=== PATIENT | female | born 1940 | race Caucasian/White ===

== ENCOUNTER 2016-08-25 08:48 | Inpatient (IN) ==
[2016-08-25] MEDS ORDERED: LEVOFLOXACIN INJ 750 MG in PREMIX 1 EACH IV STA (09:03)
[2016-08-25] MEDS ORDERED: metroNIDAZOLE INJ 500 MG in PREMIX 1 EACH IV STA (09:03)
[2016-08-25] MEDS ORDERED: SODIUM CHLORIDE 0.9% 500 ML IV STA (09:03)
[2016-08-25] MEDS ORDERED: LEVOFLOXACIN INJ 150 ML IV ONE (09:10)
[2016-08-25] MEDS ORDERED: metroNIDAZOLE 500 MG/100 ML PREMIX IV ONE (09:11)
--- NOTE | 2016-08-25 09:36 | XRay Report ---
Exam: XR chest 1V portable Date: 08/25/2016 9:04 AM Indication: Abdominal pain Comparison: 01/22/2016 Technical: AP Findings: Cardiomegaly is present. A cardiac pacing device is present from a left-sided approach with atrial ventricular leads. Degenerative change present thoracic spine. Mediastinum is intact. Small area of calcification present over the left lateral axillary breasts region. Impression: 1. Cardiomegaly without overt decompensation 2. Stable persistent cardiac pacing device 3. Calcified node over the left axillary region or breast area PROCEDURE INTERPRETED AT [facility] DEPARTMENT OF RADIOLOGY Final Report Signed by: Dr. Teddy Gary
--- NOTE | 2016-08-25 09:43 | CT Report ---
History: Left lower quadrant abdominal pain. Fever Date: 08/25/2016 Study: CT abdomen and pelvis without contrast Comparison exam: December 24, [address] Technique: Spiral CT sections were obtained from the lung bases to the pubic symphysis without contrast. The CT exam was performed using one or more of the following dose reduction techniques: Automated exposure control, adjustment of the mA and/or kV according to patient size, or use of iterative reconstruction technique. CT abdomen: There is a 20 mm noncalcified pulmonary nodule in the right middle lobe posteriorly which is unchanged in size from January 18, 2016, increased in size from 13 mm on July 18, 2008 CT chest. There is also a small 14 mm noncalcified nodule inferiorly in the right middle lobe at its more medial aspect which is similar in size to the 2013 study. There is no definite evidence of acute pneumonia in the partially visualized lung bases. Pacemaker leads are noted in the partially visualized lower chest. There is no evidence of pneumoperitoneum. The gallbladder is surgically absent. The liver, spleen, pancreas, adrenal glands are unchanged. There is borderline prominence of the intrahepatic biliary ducts, though this is stable and may represent the patient's postcholecystectomy baseline. There is no radiopaque renal or ureteral stone. There is no hydronephrosis. There are some rounded areas of decreased density suggesting potential renal cysts in the mid to lower left kidney. There is no aneurysm of the moderately calcified abdominal aorta. There is some mild pericolonic haziness in the region of diverticuli involving the junction of the descending and sigmoid segments of colon, compatible with some low-grade diverticulitis. There is no wesley bowel obstruction. Evaluation for colon wall thickness is limited because of decreased colonic distention and the lack of oral contrast. There is no obvious lymphadenopathy by short axis diameter criteria. CT pelvis: There is no pelvic mass or abnormal pelvic fluid collection. The uterus is surgically absent. There is prominent degenerative disease in the lower lumbar spine. Impression: There is evidence of mild diverticulitis at the junction of the descending and sigmoid segments of the colon. There is no evidence of pneumoperitoneum or abscess formation. There is right middle lobe pulmonary nodule which has been present since 2008 and has exhibited only slow growth since that time. This has been followed by periodic CT chest PROCEDURE INTERPRETED AT [facility] [place] DEPARTMENT OF RADIOLOGY Final Report Signed by: Dr. Tara Enrique
[2016-08-25 10:41] LABS: Basophils % 0.1 % (0.0-0.8); Eosinophils # 0.1 10*3/uL (0.0-0.87); Eosinophils % 0.9 % (0.00-10.9); Hemoglobin 11.3 GM/DL (12.0-16.0); Immature Granulocytes % 0.4 %; Immature Granulocytes Absolute 0.04 #; Lymphocytes # 1.2 10*3/uL (1.4-4.0); Lymphocytes % 11.5 % (21.3-54.2); Mean Corpuscular HGB Conc 31.4 GM/DL (32-36); Mean Corpuscular Hemoglobin 22 PG (27-34); Mean Corpuscular Volume 71.4 FL (87-102); Mean Platelet Volume 10.5 FL (9.6-12.0); Monocytes # 0.9 10*3/uL (0.11-0.8); Monocytes % 8.5 % (1.7-12.7); Neutrophils # 8.4 10*3/uL (1.4-7.4); Neutrophils % 78.6 % (38.7-73.9); Platelet Count 278 T/CUMM (130-400); Red Blood Count 5.04 MC/CUMM (3.8-5.5); Red Cell Distribution Width 16.9 % (9.3-17.3); White Blood Count 10.6 T/CUMM (4-12)
[2016-08-25 10:47] LABS: Apearance,Urine Slightly Hazy (Clear); Bacteria,Urine Many /HPF (Few); Bilirubin,Urine Negative (Negative); Blood, Urine Negative (Negative); Glucose,Urine (UA) Negative (Negative); Ketones,Urine Negative (Negative); Mucus,Urine Occasional /LPF (Occasional); Nitrite,Urine Positive (Negative); Protein,Urine 30 MG/DL; RBC,Urine 1 /HPF (0-4); Squamous Epithelial Cell,Urine Occasional /HPF (0-10); Urine Color Yellow (Yellow); Urine Specific Gravity 1.008 (1.001-1.035); Urine Urobilinogen < 2.0 EU/DL (0.2-1.0); WBC,Urine 3 /HPF (0-6)
--- NOTE | 2016-08-25 10:56 | Emergency Department Note ---
Zoe Malave Mantricia, am scribing for, and in the presence of, Jourdan Beckford MD 09:10. Shakeel Malave Phillip K, MD, personally performed the services described in this documentation, ascribed by Jacquelyn Enriquez in my presence, and it is both accurate and complete . Arrival - Arrival Chief Complaint: Abdominal / Flank Pain ED Nursing Triage Note: c/o abd pain and diarrhea since thursday. Mode of Arrival: Stretcher Limitations: No Limitations Source: Patient Time Seen by Provider: 08/25/16 08:57 - History of Present Illness HPI Narrative: Pt is a 75 y/o white female arriving to ED with c/o lower abdominal pain that onset 2 days ago. Pt denies diverticulitis and ever having a colon scope performed before. She reports diarrhea with blood, chronic cough, and dysuria but denies N/V. Pt has a PMHx of COPD and IDDM and has a PSHx of hysterectomy, cholecystectomy, and appendicitis. She reports no other complaints to ED. Onset (ago): day(s) Consistency: constant Allergies/Adverse Reactions: Allergies Allergy/AdvReac Type Severity Reaction Status Date / Time latex Allergy ITCHING Verified 01/18/16 11:48 Latex, Natural Rubber Allergy RASH Verified 01/18/16 11:48 Penicillins Allergy RASH Verified 01/18/16 11:48 propoxyphene [From Darvon] Allergy RASH Verified 01/18/16 11:48 Sulfa (Sulfonamide Allergy RASH Verified 01/18/16 11:48 Antibiotics) sulfamethoxazole Allergy Nausea Verified 01/18/16 11:48 [From Bactrim] trimethoprim [From Bactrim] Allergy Nausea Verified 01/18/16 11:48 PLASTIC TAPE Allergy Intermediate ITCHING Uncoded 01/18/16 11:48 Home Medications: Home Medications Medication Instructions Recorded Confirmed Type Furosemide Tab [Lasix Tab] 40 mg PO DAILY 06/26/14 08/25/16 History Pantoprazole Tab [Protonix Tab] 40 mg PO DAILY 06/26/14 08/25/16 History Pravastatin [Pravachol] 40 mg PO BEDTIME 06/26/14 08/25/16 History Digoxin Tab [Lanoxin Tab] 0.25 mg PO DAILY 10/03/14 08/25/16 History Insulin Detemir [Levemir] 35 unit SUBCUT BEDTIME 08/01/15 08/25/16 History Potassium Chloride [Klor-Con M20] 20 meq PO QID 01/18/16 08/25/16 History Albuterol Sulfate [Ventolin HFA] 2 puff INH Q6H PRN 08/25/16 08/25/16 History Albuterol/Ipratropium Neb [Duoneb] 3 ml RESP TX RT Q6H PRN 08/25/16 08/25/16 History Losartan [Cozaar] 50 mg PO DAILY 08/25/16 08/25/16 History Metoprolol Tartrate Tab [Lopressor 100 mg PO DAILY 08/25/16 08/25/16 History Tab] Potassium Chloride [Klor-Con M20] 20 meq PO QID 08/25/16 08/25/16 History Rivaroxaban [Xarelto] 20 mg PO DAILY 08/25/16 08/25/16 History Vit C/Vit E AC/Lut/Copper/Zinc 1 each PO BID 08/25/16 08/25/16 History [Preservision Lutein Softgel] dilTIAZem HCl [Cartia XT] 300 mg PO DAILY 08/25/16 08/25/16 History Review of System - Review of System 12 point system: reviewed and no additional remarkable complaints except as stated - Review of System Head/Ears/Nose/Throat: Absent: earache Respiratory: Present: cough (chronic) Cardiovascular: Absent: chest pain Gastrointestinal: Present: abdominal pain (left sided ), diarrhea (with blood). Absent: nausea, vomiting Genitourinary female: Present: dysuria. Absent: abnormal menses Medical,Surgical,& Family Hx - Medical History Cardio: History of: Cardiac Dysrhythmia (A-FIB, afib with rvr), Hypertension, Pacemaker (left chest wall), Cardiovascular Problems No history of: CHF Psychological: History of: Anxiety Disorders, Depression Neurology: History of: TIA No history of: Seizures HEENT: History of: Ear Problem, Eye Problem, Dental Problems, Glaucoma, HEENT Problems Endocrine: History of: Diabetes Mellitus (IDDM) (levimir bid), Diabetes Mellitus (NIDDM) (TYPE 2) Rheumatology: History of;: Rheumatological Problems (pt reports rheumatoid arth) Respiratory: History of: COPD, Obstructive Sleep Apnea (uses c-pap), Pneumonia, Respiratory Problems (recurrent shortness of breath) Genitourinary: History of: Bladder Problem (stress incontinence), Recurring Urinary Tract Infections Gastrointestinal: History of: GERD, GI Problems (hemmeroids, gall bladder removal) Musculoskeletal: History of: Back/Neck Problems (pt reports pain), Musculoskeletal Problems (pt reports scoliosis, prior left wrist fx) Hematology: History of: Anemia, Clotting Problems No history of: Blood Transfusion Reaction Other: History of: Miscellaneous Medical Problems (benign mass removed from left breast) No history of: Anesthesia Reactions - Surgical History Cardiac Surgeries: Sugical HX of: Cardiac Catheterization () Thoracic Surgeries: Patient denies;: Lobectomy Neurologic Surgeries: Patient denies: Neurologic Surgery HEENT Surgeries: Surgical HX of: Eye Surgery, Tonsilectomy & Adenoidectomy Abdominal Surgeries: Surgical HX of: Cholecystectomy, Colonoscopy Reproductive Surgeries: Surgical HX of;: Breast Surgery (biopsy), Section, Hysterectomy Orthopedic Surgeries: Surgical HX of;: Orthopedic Surgery - Family History Family History: Reports;: Family Cancer (sister), Family Diabetes, Family Heart Disease (PARENTS), Family Hypertension (father, siblings) - Social History Smoking Status: Never smoker Frequency of Alcohol Use: None Type of Drug Use: None Exam Vital Signs: Vital Signs Temperature 99.0 F 08/25/16 08:52 Pulse Rate 79 08/25/16 08:52 Respiratory Rate 18 08/25/16 08:52 Blood Pressure 156/83 08/25/16 08:52 O2 Sat by Pulse Oximetry 98 08/25/16 08:52 - General General appearance: alert, in no apparent distress - Head Head exam: Present: atraumatic, normocephalic, normal inspection - Eye Eye exam: Present: normal appearance, PERRL, EOMI - ENT ENT exam: Present: normal exam, normal oropharynx, mucous membranes moist, TM's normal bilaterally, normal external ear exam - Neck Neck exam: Present: normal inspection, full ROM, trachea midline. Absent: tenderness - Chest Chest inspection: Present: normal inspection, symmetric chest wall rise. Absent : tenderness - Respiratory Respiratory exam: Present: normal lung sounds bilaterally - Cardiovascular Cardiovascular exam: Present: regular rate, normal rhythm, normal heart sounds - Abdominal Exam Abdominal exam: Present: soft, tenderness (LLQ TTP), normal bowel sounds. Absent: distention, guarding, rebound - Rectal Exam Rectal exam: Present: heme (+) stool, hemorrhoids, other (No gross blood) - Extremities Exam Extremities exam: Present: normal inspection, full ROM, normal capillary refill. Absent: tenderness, pedal edema - Back Exam Back exam: Present: normal inspection, full ROM. Absent: tenderness - Neurological Exam Neurological exam: Present: alert, oriented X3, CN II-XII intact, normal gait, reflexes normal - Psychiatric Psychiatric exam: Present: normal affect, normal mood - Skin Skin exam: Present: warm, dry, intact, normal color Course Course Narrative: Patient has diverticulitis. We will give her Levaquin and Flagyl in the ED and admit to the hospitalist. We will also obtain a GI consult and that she has not had a colonoscope in quite some time. Results - Labs CBC & BMP: 08/25/16 10:32 Lab Results: I have reviewed the patients labs - Diagnostic Findings Procedure: Chest x-ray: report reviewed by me (1. Cardiomegaly without overt decompensation. 2. Stable persistent cardiac pacing device. 3. Calcified node over the left axillary region or breast area.), CT Abdomen and Pelvis: report reviewed by me (There is evidence of mild diverticulitis at the junction of the descending and sigmoid segments of the colon. There is no evidence of pneumoperitoneum or abscess formation. There is right middle lobe pulmonary nodule which has been present since 2008 and has exhibited only slow growth since that time. This has been followed by periodic CT chest.) Disposition Clinical Impression: Diverticulitis Case discussed with: patient, patient's family Disposition: Still a Patient Condition: Guarded Additional Instructions: Admit to the hospitalist.
[2016-08-25 11:09] LABS: Albumin 3.5 G/DL (3.4-5.0); Bilirubin,Total 0.8 MG/DL (0.2-1.0); Calcium 8.4 MG/DL (8.5-10.1); Magnesium 1.8 MG/DL (1.8-2.4); Osmolality,Calculated 285.8 MOS/KG (273-304); Potassium 3.1 MMOL/L (3.5-5.1); Total Protein 6.3 G/DL (6.4-8.3)
--- NOTE | 2016-08-25 12:14 | Hospitalist History & Physical ---
Assessment and Plan - Time spent with patient Time spent with patient: Greater than 30 minutes (1) Acute diverticulitis Status: Acute Assessment and plan: Ms. Garcia is a pleasant 75-year-old white female with multiple medical problems admitted by the hospitalist service with acute diverticulitis and urinary tract infection. She will be started on IV antibiotics that will treat both. We will treat her pain and nausea on a as needed basis along with some IV fluids. She will be given a clear liquid diet until her pain improves. If her pain does not improve within a few days will need to get surgery and GI involved. We will replace her potassium and monitor her blood pressure in blood sugars. Dr. Vazquez will see and examined patient and further recommendations to follow. 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 Current Visit: No (5) COPD (chronic obstructive pulmonary disease) Status: Chronic Current Visit: No Qualifiers: COPD type: COPD with acute lower respiratory infection Qualified Code(s): J44.0 - Chronic obstructive pulmonary disease with acute lower respiratory infection (6) Diabetes mellitus Status: Chronic Current Visit: No Qualifiers: Diabetes mellitus type: type 1 Diabetes mellitus complication status: with neurologic complications (7) Hypertension Status: Chronic Current Visit: No Qualifiers: Hypertension type: essential hypertension Qualified Code(s): I10 - Essential (primary) hypertension History of Present Illness Chief complaint: Lower abdominal pain and diarrhea History of present illness: Ms. Garcia is a 75 year old white female with history of CHF, hyperlipidemia, diabetes, COPD, hypertension, and A. fib on Xarelto presenting to the ED with a 3 day history of left lower quadrant abdominal pain with diarrhea. Patient rates the pain a 6/10 and is unrelenting. This is not associated with nausea or vomiting and she has been running low-grade fever. She denies shortness of breath, chest pain, constipation or dysphagia. She has had some right lower extremity edema that Dr. ellis has doubled her Lasix recently. Patient states that she has never had diverticulitis before. Upon exam patient is running a low-grade fever in the ED with mildly elevated blood pressures. Her white count is normal, potassium is low at 3.1, blood sugars are okay, positive nitrates and trace leukocytes in her urine. CT scan of the abdomen does show mild diverticulitis at the junction of the descending and sigmoid segments of the colon with no evidence of pneumoperitoneum or abscess. She also has a right middle lobe pulmonary nodule which is been present since 2008 and has exhibited only slow growth since that time. Patient states she is being followed by Dr. Guy with periodic CTs for this. After discussion with ED physician Dr. Beckford and admitting hospitalist Dr. Vazquez, it was agreed patient would be admitted for further evaluation and treatment. Patient' s medicines have been reviewed and will be reconciled and patient is a full code. Home Medications Medication Instructions Recorded Confirmed Type Furosemide Tab [Lasix Tab] 40 mg PO DAILY 06/26/14 08/25/16 History Pantoprazole Tab [Protonix Tab] 40 mg PO DAILY 06/26/14 08/25/16 History Pravastatin [Pravachol] 40 mg PO BEDTIME 06/26/14 08/25/16 History Digoxin Tab [Lanoxin Tab] 0.25 mg PO DAILY 10/03/14 08/25/16 History Insulin Detemir [Levemir] 35 unit SUBCUT BEDTIME 08/01/15 08/25/16 History Potassium Chloride [Klor-Con M20] 20 meq PO QID 01/18/16 08/25/16 History Albuterol Sulfate [Ventolin HFA] 2 puff INH Q6H PRN 08/25/16 08/25/16 History Albuterol/Ipratropium Neb [Duoneb] 3 ml RESP TX RT Q6H PRN 08/25/16 08/25/16 History Losartan [Cozaar] 50 mg PO DAILY 08/25/16 08/25/16 History Metoprolol Tartrate Tab [Lopressor 100 mg PO DAILY 08/25/16 08/25/16 History Tab] Potassium Chloride [Klor-Con M20] 20 meq PO QID 08/25/16 08/25/16 History Rivaroxaban [Xarelto] 20 mg PO DAILY 08/25/16 08/25/16 History Vit C/Vit E AC/Lut/Copper/Zinc 1 each PO BID 08/25/16 08/25/16 History [Preservision Lutein Softgel] dilTIAZem HCl [Cartia XT] 300 mg PO DAILY 08/25/16 08/25/16 History Allergies Allergy/AdvReac Type Severity Reaction Status Date / Time latex Allergy ITCHING Verified 01/18/16 11:48 Latex, Natural Rubber Allergy RASH Verified 01/18/16 11:48 Penicillins Allergy RASH Verified 01/18/16 11:48 propoxyphene [From Darvon] Allergy RASH Verified 01/18/16 11:48 Sulfa (Sulfonamide Allergy RASH Verified 01/18/16 11:48 Antibiotics) sulfamethoxazole Allergy Nausea Verified 01/18/16 11:48 [From Bactrim] trimethoprim [From Bactrim] Allergy Nausea Verified 01/18/16 11:48 PLASTIC TAPE Allergy Intermediate ITCHING Uncoded 01/18/16 11:48 Medical,Surgical,& Family Hx - Medical History Cardio: History of: Cardiac Dysrhythmia (A-FIB, afib with rvr), Hypertension, Pacemaker (left chest wall), Cardiovascular Problems No history of: CHF Psychological: History of: Anxiety Disorders, Depression Neurology: History of: TIA No history of: Seizures HEENT: History of: Ear Problem, Eye Problem, Dental Problems, Glaucoma, HEENT Problems Endocrine: History of: Diabetes Mellitus (IDDM) (levimir bid), Diabetes Mellitus (NIDDM) (TYPE 2) Rheumatology: History of;: Rheumatological Problems (pt reports rheumatoid arth) Respiratory: History of: COPD, Obstructive Sleep Apnea (uses c-pap), Pneumonia, Respiratory Problems (recurrent shortness of breath) Genitourinary: History of: Bladder Problem (stress incontinence), Recurring Urinary Tract Infections Gastrointestinal: History of: GERD, GI Problems (hemmeroids, gall bladder removal) Musculoskeletal: History of: Back/Neck Problems (pt reports pain), Musculoskeletal Problems (pt reports scoliosis, prior left wrist fx) Hematology: History of: Anemia, Clotting Problems No history of: Blood Transfusion Reaction Other: History of: Miscellaneous Medical Problems (benign mass removed from left breast) No history of: Anesthesia Reactions - Surgical History Cardiac Surgeries: Sugical HX of: Cardiac Catheterization () Thoracic Surgeries: Patient denies;: Lobectomy Neurologic Surgeries: Patient denies: Neurologic Surgery HEENT Surgeries: Surgical HX of: Eye Surgery, Tonsilectomy & Adenoidectomy Abdominal Surgeries: Surgical HX of: Cholecystectomy, Colonoscopy Reproductive Surgeries: Surgical HX of;: Breast Surgery (biopsy), Section, Hysterectomy Orthopedic Surgeries: Surgical HX of;: Orthopedic Surgery - Family History Family History: Reports;: Family Cancer (sister), Family Diabetes, Family Heart Disease (PARENTS), Family Hypertension (father, siblings) - Social History Smoking Status: Never smoker Frequency of Alcohol Use: None Type of Drug Use: None Marital Status: Lives With:: Assisted-living Functional capacity: independent ambulation Review of systems: A complete 10 system review of systems was obtained and pertinent positives and negatives per HPI Exam - Constitutional Vitals: Period Temp Pulse Resp BP Sys/Camacho Pulse Ox Last 24 Hr 99.0 F-99.0 F 79-79 18-18 156-156/83-83 98 Exam: Constitutional System: No distress. No tremulousness. Head: Normocephalic, atraumatic. Ears, Nose and Throat System: No evidence of Otitis or Mastoiditis. No epistaxis or discharge Eyes System: Pupils equal, round, and reactive. Extraocular muscles intact. Neck: Supple, without adenopathy, No jugular venous distention. No thyromegaly, neck mass, or prior surgery apparent. Respiratory System: Chest clear to auscultation. Cardiovascular System: Heart with irregularly irregular rate and rhythm. No murmur. GI System: Abdomen soft, moderately tender left lower quadrant. Normo active bowel sounds present. Musculoskeletal System: limbs with mild right pedal edema. Diminished distal pulses. Neurological System: No discernable sensory deficit. No aphasia Psychiatric System: Conversation is rational Results - Labs CBC & BMP: 08/25/16 10:32 08/25/16 10:32 Lab Results: I have reviewed the past 24 hour labs - Diagnostic Findings Procedure: Chest x-ray: report reviewed by me (Cardiomegaly without overt decompensation, stable persistent cardiac pacing device, calcified node over the left axillary region or breast), CT Abdomen and Pelvis: report reviewed by me (Evidence of mild diverticulitis at the junction of the descending and sigmoid segments of the colon. No evidence of pneumoperitoneum or abscess. Right middle lobe pulmonary nodule stable since 2008.)
[2016-08-25] MEDS ORDERED: ACETAMINOPHEN 325 MG TABLET PO PRN ×2 (12:20)
[2016-08-25] MEDS ORDERED: PROMETHAZINE 25 MG/1 ML VIAL IM PRN (12:20)
[2016-08-25] MEDS ORDERED: DOCUSATE SODIUM 100 MG CAPSULE PO PRN (12:20)
[2016-08-25] MEDS ORDERED: guaiFENesin/DM ER 600-30 MG TABLET PO PRN (12:20)
[2016-08-25] MEDS ORDERED: diphenhydrAMINE CAP 25 MG CAPSULE PO PRN (12:20)
[2016-08-25] MEDS ORDERED: MORPHINE 2 MG/1 ML SYRINGE IV PRN (12:20)
[2016-08-25] MEDS ORDERED: ALBUTEROL/IPRATROPIUM 3 ML NEB RESP TX PRN (12:23)
[2016-08-25] MEDS ORDERED: GLUCAGON 1 MG VIAL IM PRN (12:24)
[2016-08-25] MEDS ORDERED: DEXTROSE 50% 25 GM/50 ML VIAL IV PRN (12:24)
[2016-08-25] MEDS: SODIUM CHLOR 0.9% KCL 20 MEQ 20 MEQ/1,000 ML BAG IV SCH (15:10)
[2016-08-25] MEDS: metroNIDAZOLE INJ 500 MG in PREMIX 1 EACH IV SCH ×2 (15:10→20:48)
[2016-08-25] MEDS: DIGOXIN 0.25 MG TABLET PO SCH (15:11)
[2016-08-25] MEDS: LOSARTAN 50 MG TABLET PO SCH (15:11)
[2016-08-25] MEDS: METOPROLOL TARTRATE 100 MG TABLET PO SCH (15:11)
[2016-08-25] MEDS: DILTIAZEM CD 300 MG CAPSULE PO SCH (15:12)
[2016-08-25] MEDS: FUROSEMIDE 40 MG TABLET PO SCH (15:12)
[2016-08-25] MEDS: RIVAROXABAN 20 MG TABLET PO SCH (15:12)
[2016-08-25] MEDS: PANTOPRAZOLE 40 MG TABLET PO SCH (15:12)
[2016-08-25] MEDS: INSULIN LISPRO 100 UNIT/ML SUBCUT SCH ×2 (17:26→23:09)
[2016-08-25] MEDS ORDERED: ALBUTEROL 2.5 MG/3 ML NEB RESP TX PRN (19:00)
[2016-08-25] MEDS: PRAVASTATIN 40 MG TABLET PO SCH (20:49)
[2016-08-25] MEDS: ONDANSETRON 4 MG/2 ML VIAL IV PRN (23:17)
[2016-08-26] MEDS: SODIUM CHLOR 0.9% KCL 20 MEQ 20 MEQ/1,000 ML BAG IV SCH ×4 (02:04→21:58)
[2016-08-26] MEDS: metroNIDAZOLE INJ 500 MG in PREMIX 1 EACH IV SCH ×3 (05:41→22:26)
[2016-08-26 05:47] LABS: Basophils % 0.2 % (0.0-0.8); Eosinophils # 0.1 10*3/uL (0.0-0.87); Eosinophils % 0.7 % (0.00-10.9); Hematocrit 35.2 VOL% (35.7-47.0); Hemoglobin 10.9 GM/DL (12.0-16.0); Immature Granulocytes % 0.4 %; Immature Granulocytes Absolute 0.05 #; Lymphocytes # 1.1 10*3/uL (1.4-4.0); Mean Corpuscular Hemoglobin 22 PG (27-34); Mean Corpuscular Volume 71.8 FL (87-102); Mean Platelet Volume 10.6 FL (9.6-12.0); Monocytes # 0.8 10*3/uL (0.11-0.8); Monocytes % 6.1 % (1.7-12.7); Neutrophils # 10.5 10*3/uL (1.4-7.4); Neutrophils % 83.6 % (38.7-73.9); Platelet Count 293 T/CUMM (130-400); White Blood Count 12.6 T/CUMM (4-12)
[2016-08-26 06:21] LABS: Calcium 7.9 MG/DL (8.5-10.1); Magnesium 1.8 MG/DL (1.8-2.4); Osmolality,Calculated 284.8 MOS/KG (273-304); Potassium 3.5 MMOL/L (3.5-5.1)
[2016-08-26] MEDS: INSULIN LISPRO 100 UNIT/ML SUBCUT SCH ×4 (06:59→22:16)
--- NOTE | 2016-08-26 07:25 | EKG Report ---
Stationary ECG Study [facility] Test Date: 08/26/2016 7:24:02 AM Pat Name: HANNA LEZAMA Department: Room: 338 Gender: F Vice Chancellor: JESUS : 1940 Requested by: Phyllis Carvajal Order Number: [id number] Reading MD: LUPE CHAHAL Intervals [place] Rate: 61 P: 999 [place]: 0 QRS: -27 QRSD: 104 T: 50 QT: 401 QTc: 405 Interpretive Statements UNCERTAIN IRREGULAR RHYTHM ELECTRONIC VENTRICULAR PACEMAKER -- CONTOUR ANALYSIS BASED ON INTRINSIC RHYTHM BORDERLINE LEFT AXIS DEVIATION ST DEVIATION AND MODERATE T-WAVE ABNORMALITY Electronically Signed On 08-26-16 10:03:33 CDT by LUPE CHAHAL [email or web address]
[2016-08-26] MEDS: LOSARTAN 50 MG TABLET PO SCH (08:49)
[2016-08-26] MEDS: DILTIAZEM CD 300 MG CAPSULE PO SCH (08:50)
[2016-08-26] MEDS: PANTOPRAZOLE 40 MG TABLET PO SCH (08:50)
[2016-08-26] MEDS: RIVAROXABAN 20 MG TABLET PO SCH (08:50)
[2016-08-26] MEDS: FUROSEMIDE 40 MG TABLET PO SCH (08:50)
[2016-08-26] MEDS: METOPROLOL TARTRATE 100 MG TABLET PO SCH (08:50)
[2016-08-26] MEDS: LEVOFLOXACIN INJ 500 MG in PREMIX 1 EACH IV SCH (11:20)
[2016-08-26] MEDS: DIGOXIN 0.25 MG TABLET PO SCH (12:46)
--- NOTE | 2016-08-26 13:03 | Hospitalist Progress Note ---
Assessment and Plan - Time spent with patient Time spent with patient: Greater than 30 minutes (1) History of melena Status: Acute Assessment and plan: Hemoglobin stable. Holding rivaroxaban. Current Visit: Yes (2) Acute diverticulitis Status: Acute Assessment and plan: Continue antibiotics. We will obtain Hemoccults and consult gastroenterology. Current Visit: Yes (3) UTI (urinary tract infection) Status: Acute Assessment and plan: Continue antibiotics awaiting speciation. Current Visit: Yes (4) Atrial fibrillation Status: Acute Assessment and plan: We will hold rivaroxaban.. Will have to confirm if the patient is having bloody bowel movements. Hemoglobin is stable. Hemoccults ordered. Current Visit: No (5) Diabetes mellitus Status: Chronic Assessment and plan: Hemoglobin A1c 6.2. Continue current management. Current Visit: No Qualifiers: Diabetes mellitus type: type 1 Diabetes mellitus complication status: with neurologic complications (6) Hypertension Status: Chronic Assessment and plan: Continue current management. Current Visit: No Qualifiers: Hypertension type: essential hypertension Qualified Code(s): I10 - Essential (primary) hypertension Hospitalist: Subjective Interval history: Patient reports feeling much better though she still has occasional abdominal pain. She also reports having nausea and vomiting last night which she did not have at admission. Furthermore the patient had a black bowel movement this morning. Exam - Constitutional Vitals: Period Temp Pulse Resp BP Sys/Camacho Pulse Ox Last 24 Hr 97.0 F-98.8 F 61-85 16-20 123-150/65-96 91-96 General appearance: no acute distress - Head Head exam: Present: normocephalic, atraumatic - Eye Eye exam: Present: EOMI Pupils: Present: CHANDU - ENT ENT exam: Present: normal exam - Neck Neck exam: Present: normal inspection - Respiratory Respiratory exam: Present: clear to auscultation bilaterally. Absent: rhonchi, wheezes - Cardiovascular Cardiovascular exam: Present: regular rate and rhythm. Absent: gallop, rubs, systolic murmur - GI/Abdominal GI/Abdominal exam: Present: normal bowel sounds, tenderness (Mild Tenderness left lower quadrant), soft. Absent: distended, firm, guarding, rebound - Extremities Exam Extremities exam: Present: normal inspection. Absent: calf tenderness, edema Results - Labs CBC & BMP: 08/26/16 05:13 08/26/16 05:12 Lab Results: I have reviewed the past 24 hour labs Quality Measures - VTE Contraindication to Pharmacological VTE Prophylaxis: Already on Theraputic Agent , No Prophylaxis Needed
--- NOTE | 2016-08-26 15:01 | Gastrointestinal Consult Note ---
<Ana Anne - Last Filed: 08/26/16 14:58> Assessment and Plan (1) Diverticulitis Status: Acute Assessment and plan: 08/26-2-3 day history of left lower quadrant pain with associated diarrhea and low-grade fever. Also later onset of nausea with vomiting. CT findings noted as below. Leukocytosis with WBCs at 12,000. Currently on IV Flagyl and Levaquin. Continue to monitor at this time. Will advance diet in the morning if pain is improved. Plan an addendum to followed by Dr. Travis. Current Visit: Yes (2) Melena Status: Acute Assessment and plan: 08/26-report by patient this morning of dark stool. On Xarelto for atrial fibrillation, last dose today. No history of NSAID use or peptic ulcer disease. Last EGD in 2015 with findings below. Xarelto currently being held in stool for occult blood is pending. Plan an addendum to follow by Dr. Travis. Current Visit: Yes History of Present Illness Chief complaint: Diverticulitis, questionable melena History of present illness: Ms. Garcia is a 75 year old female who presented to the hospital and yesterday with 2-3 day history of left lower quadrant abdominal pain, nausea and diarrhea. Patient states that the pain started fairly sudden 2-3 days ago in her left lower quadrant with sharp stabbing pains. She states the pain was not precipitated by any known factors and was associated with a low-grade fever but denies any chills. She states she did have some mild nausea initially with this. She also reports onset of diarrhea stools at 3-4 per day since onset of pain. She denies any melena or hematochezia initially associated with this. She presented to the emergency room for further evaluation at that time. Patient states that since admission she has had 3-4 loose bowel movements today. She reported this morning that her stools look dark in color however she states nursing staff felt that it was not melena. She is noted to be on Xarelto for history of atrial fibrillation with her last reported dose being this morning. This is currently noted to be on hold at present time due to the reports of melena. Stool for occult blood is pending. She was also found on admission to have a UTI with gram-negative rods and final C&S pending. She states that she has lost approximately 45 pounds over the last year and a half however states it was unwarranted weight loss associated to her fairly new diagnosis of diabetes and dietary changes. She states she keeps her blood sugar in very good control. She has had upper endoscopy with the last one done in 2016 with findings of GERD, esophageal stricture with dilation, and gastric polyps (hyperplastic) with negative H. pylori stain. She denies any dysphagia, GERD, epigastric pain, or dyspepsia symptoms. Denies any NSAID use. She denies any Pepto-Bismol or iron supplements. She denies a history of diverticulitis in the past. States she has never had a colon scope done. She does report a family history of colon cancer in her brother who also at that time was found to have liver cancer. CT of abdomen without contrast shows mild diverticulitis at the junction of the descending and sigmoid segments of the colon with no pneumoperitoneum or abscess formation. She presented without leukocytosis on yesterday however elevated at 12,000 today. Hemoglobin is down very minimally from admission at 10.9. She states when she is better she would like to proceed with a colon scope. Home Medications Medication Instructions Recorded Confirmed Type Furosemide Tab [Lasix Tab] 40 mg PO DAILY 06/26/14 08/25/16 History Pantoprazole Tab [Protonix Tab] 40 mg PO DAILY 06/26/14 08/25/16 History Pravastatin [Pravachol] 40 mg PO BEDTIME 06/26/14 08/25/16 History Digoxin Tab [Lanoxin Tab] 0.25 mg PO DAILY 10/03/14 08/25/16 History Insulin Detemir [Levemir] 35 unit SUBCUT BEDTIME 08/01/15 08/25/16 History Albuterol Sulfate [Ventolin HFA] 2 puff INH Q6H PRN 08/25/16 08/25/16 History Albuterol/Ipratropium Neb [Duoneb] 3 ml RESP TX RT Q6H PRN 08/25/16 08/25/16 History Losartan [Cozaar] 50 mg PO DAILY 08/25/16 08/25/16 History Metoprolol Tartrate Tab [Lopressor 100 mg PO DAILY 08/25/16 08/25/16 History Tab] Potassium Chloride [Klor-Con M20] 20 meq PO QID 08/25/16 08/25/16 History Rivaroxaban [Xarelto] 20 mg PO DAILY 08/25/16 08/25/16 History Vit C/Vit E AC/Lut/Copper/Zinc 1 each PO BID 08/25/16 08/25/16 History [Preservision Lutein Softgel] dilTIAZem HCl [Cartia XT] 300 mg PO DAILY 08/25/16 08/25/16 History Allergies Allergy/AdvReac Type Severity Reaction Status Date / Time latex Allergy ITCHING Verified 01/18/16 11:48 Latex, Natural Rubber Allergy RASH Verified 01/18/16 11:48 Penicillins Allergy RASH Verified 01/18/16 11:48 propoxyphene [From Darvon] Allergy RASH Verified 01/18/16 11:48 Sulfa (Sulfonamide Allergy RASH Verified 01/18/16 11:48 Antibiotics) sulfamethoxazole Allergy Nausea Verified 01/18/16 11:48 [From Bactrim] trimethoprim [From Bactrim] Allergy Nausea Verified 01/18/16 11:48 PLASTIC TAPE Allergy Intermediate ITCHING Uncoded 01/18/16 11:48 Medical,Surgical,& Family Hx - Medical History Cardio: History of: Cardiac Dysrhythmia (A-FIB, afib with rvr), CHF, Hypertension, Pacemaker (left chest wall), Cardiovascular Problems Psychological: History of: Anxiety Disorders, Depression Neurology: History of: TIA No history of: Seizures HEENT: History of: Ear Problem, Eye Problem, Dental Problems, Glaucoma, HEENT Problems Endocrine: History of: Diabetes Mellitus (IDDM) (levimir bid), Diabetes Mellitus (NIDDM) (TYPE 2) Rheumatology: History of;: Rheumatological Problems (pt reports rheumatoid arth) Respiratory: History of: COPD, Obstructive Sleep Apnea (uses c-pap), Pneumonia, Respiratory Problems (recurrent shortness of breath) Genitourinary: History of: Bladder Problem (stress incontinence), Recurring Urinary Tract Infections Gastrointestinal: History of: GERD, GI Problems (hemmeroids, gall bladder removal) Musculoskeletal: History of: Back/Neck Problems (pt reports pain), Musculoskeletal Problems (pt reports scoliosis, prior left wrist fx) Hematology: History of: Anemia, Clotting Problems No history of: Blood Transfusion Reaction Other: History of: Miscellaneous Medical Problems (benign mass removed from left breast) No history of: Anesthesia Reactions - Surgical History Cardiac Surgeries: Sugical HX of: Cardiac Catheterization () Thoracic Surgeries: Patient denies;: Lobectomy Neurologic Surgeries: Patient denies: Neurologic Surgery HEENT Surgeries: Surgical HX of: Eye Surgery, Tonsilectomy & Adenoidectomy Abdominal Surgeries: Surgical HX of: Appendectomy, Cholecystectomy, Colonoscopy Reproductive Surgeries: Surgical HX of;: Breast Surgery (biopsy), Section, Hysterectomy Orthopedic Surgeries: Surgical HX of;: Orthopedic Surgery - Family History Family History: Reports;: Family Cancer (sister), Family Diabetes, Family Heart Disease (PARENTS), Family Hypertension (father, siblings) - Social History Smoking Status: Never smoker Frequency of Alcohol Use: None Type of Drug Use: None 12 point system: reviewed and no additional remarkable complaints except as stated - Constitutional Constitutional: Present: as per HPI, weight loss (45 pounds 1-1/2 years) - EENT Eyes: Present: as per HPI Ears: Present: as per HPI Nose, mouth and throat: Present: as per HPI - Cardiovascular Cardiovascular: Present: as per HPI - Respiratory Respiratory: Present: as per HPI - Gastrointestinal Gastrointestinal: Present: as per HPI, abdominal pain, cramping, diarrhea, loose stools, melena (Reported by patient), nausea - Genitourinary Genitourinary: Present: as per HPI - Musculoskeletal Musculoskeletal: Present: as per HPI - Neurological Neurological: Present: as per HPI - Psychiatric Psychiatric: Present: as per HPI - Endocrine Endocrine: Present: as per HPI - Hematologic/Lymphatic Hematologic/Lymphatic: Present: as per HPI Exam - Constitutional Vitals: Period Temp Pulse Resp BP Sys/Camacho Pulse Ox Last 24 Hr 97.0 F-98.8 F 61-85 16-20 123-150/65-96 91-96 General appearance: normal weight, no acute distress - Head Head exam: Present: normal inspection, normocephalic - Eye Eye exam: Present: other (Lids and conjunctive are unremarkable). Absent: scleral icterus - ENT ENT exam: Present: normal exam, normal oropharynx - Neck Neck exam: Present: normal inspection - Respiratory Respiratory exam: Present: clear to auscultation bilaterally. Absent: rales, rhonchi, wheezes - Cardiovascular Cardiovascular exam: Present: regular rate and rhythm. Absent: diastolic murmur , JVD, systolic murmur - GI/Abdominal GI/Abdominal exam: Present: normal bowel sounds, tenderness (Left lower quadrant ), soft. Absent: ascites, distended, mass, organomegaly - Extremities Exam Extremities exam: Present: normal inspection, full ROM - Back Exam Back exam: Present: normal inspection - Neurological Exam Neurological exam: Present: alert, oriented X3 - Psychiatric Psychiatric exam: Present: normal affect, normal mood - Skin Skin exam: Present: normal color, warm, dry Results - Labs CBC & BMP: 08/26/16 05:13 08/26/16 05:12 Lab Results: I have reviewed the past 24 hour labs - Diagnostic Findings Procedure: CT Abdomen and Pelvis: report reviewed by me Quality Measures - VTE Contraindication to Pharmacological VTE Prophylaxis: Already on Theraputic Agent , No Prophylaxis Needed <Fernando Travis - Last Filed: 08/26/16 19:02> History of Present Illness History of present illness: Ms. Garcia is a 75 year old female Exam - Constitutional Vitals: Period Temp Pulse Resp BP Sys/Camacho Pulse Ox Last 24 Hr 97.0 F-98.8 F 60-66 16-20 123-138/65-83 91-96 Results - Labs CBC & BMP: 08/26/16 05:13 08/26/16 05:12
[2016-08-26] MEDS: PANTOPRAZOLE 40 MG VIAL IV SCH ×2 (15:29→22:18)
[2016-08-26] MEDS: PRAVASTATIN 40 MG TABLET PO SCH (22:16)
[2016-08-26] MEDS: MULTIVITAMIN (OCUVITE) TABLET PO SCH (22:23)
[2016-08-26] MEDS ORDERED: DILTIAZEM CD 300 MG CAPSULE PO SCH (22:30)
[2016-08-27] MEDS: metroNIDAZOLE INJ 500 MG in PREMIX 1 EACH IV SCH ×2 (07:01→14:30)
[2016-08-27] MEDS: SODIUM CHLOR 0.9% KCL 20 MEQ 20 MEQ/1,000 ML BAG IV SCH ×2 (07:01→12:31)
[2016-08-27] MEDS: ONDANSETRON 4 MG/2 ML VIAL IV PRN (07:01)
[2016-08-27] MEDS: INSULIN LISPRO 100 UNIT/ML SUBCUT SCH ×3 (08:38→16:40)
[2016-08-27] MEDS: METOPROLOL TARTRATE 100 MG TABLET PO SCH (09:49)
[2016-08-27] MEDS: PANTOPRAZOLE 40 MG VIAL IV SCH (09:49)
[2016-08-27] MEDS: LOSARTAN 50 MG TABLET PO SCH (09:49)
[2016-08-27] MEDS ORDERED: PROPOFOL 200 MG/20 ML VIAL IV ONE (10:44)
[2016-08-27] MEDS ORDERED: LIDOCAINE 2% 5 ML VIAL ONE (10:44)
--- NOTE | 2016-08-27 10:44 | History and Physical Update ---
History and Physical Update - Physical Exam Mental Status: alert and oriented Heart: regular rate and rhythm Lung: clear to auscultation Abdomen: within normal limits Vitals: within normal limits
--- NOTE | 2016-08-27 10:46 | Operative Note ---
Pre-op diagnosis: Melena Procedure: EGD 75-year-old female admitted with acute diverticulitis question of melenic stools on chronic anticoagulation now for upper endoscopy to further evaluate. Informed consent was obtained the patient She was sedated with MAC anesthesia per anesthesia protocol. Patient was placed in left lateral decubitus position the Olympus flexible video upper endoscope was inserted into the oral cavity under direct vision the esophagus intubated. Findings: Esophagus-normal esophageal mucosa. There is a small hiatal hernia no significant esophagitis was seen. Stomach-normal insufflation normal mucosa to direct retroflexed views of the body fundus cardia the stomach. There are a few small gastric polyps seen in the antrum these were not biopsied due to anticoagulants. They do appear to be benign gastric polyps. Pylorus-normal Duodenum-normal for the bulb and duodenum to the third portion of the duodenum. The procedure was terminated patient was discharged recovery in good condition. Postop diagnosis: 1. Gastroesophageal reflux disease-continue PPI treatment antireflux precautions 2. Gastric polyps no endoscopic intervention needed at this time. 3. Continue treatment for acute diverticulitis and plan colonoscopy in probably 4-6 weeks. 4. Okay to resume anticoagulants as needed Anesthesia: MAC Surgeon / Physician: Fernando Travis Estimated blood loss: none Specimens: none sent Condition: stable Disposition: post procedure unit Results - Labs CBC & BMP: 08/26/16 05:13 08/26/16 05:12 Discharge Plan - Discharge Medications No Action Pravastatin [Pravachol] 40 mg PO BEDTIME Furosemide Tab [Lasix Tab] 40 mg PO DAILY Pantoprazole Tab [Protonix Tab] 40 mg PO DAILY Digoxin Tab [Lanoxin Tab] 0.25 mg PO DAILY Insulin Detemir [Levemir] 35 unit SUBCUT BEDTIME Albuterol Sulfate [Ventolin HFA] 2 puff INH Q6H PRN PRN Reason: Shortness Of Breath/Wheezing Metoprolol Tartrate Tab [Lopressor Tab] 100 mg PO DAILY dilTIAZem HCl [Cartia XT] 300 mg PO DAILY Potassium Chloride [Klor-Con M20] 20 meq PO QID Rivaroxaban [Xarelto] 20 mg PO DAILY Albuterol/Ipratropium Neb [Duoneb] 3 ml RESP TX RT Q6H PRN PRN Reason: Shortness Of Breath Vit C/Vit E AC/Lut/Copper/Zinc [Preservision Lutein Softgel] 1 each PO BID Losartan [Cozaar] 50 mg PO DAILY - Follow Up or Referral - Forms/Instructions
--- NOTE | 2016-08-27 10:55 | Anesthesia Post-Op ---
Anesthesia Post OP - Post Ansesthetic Evaluation Patient seen in post op: Yes Resp: within normal limits CV: within normal limits Mental: within normal limits Temp: within normal limits [id number]: within normal limits Nausea and Vomiting: within normal limits Pain: within normal limits
[2016-08-27] MEDS: FUROSEMIDE 40 MG TABLET PO SCH (13:01)
[2016-08-27] MEDS: MULTIVITAMIN (OCUVITE) TABLET PO SCH (13:02)
[2016-08-27] MEDS: LEVOFLOXACIN INJ 500 MG in PREMIX 1 EACH IV SCH (13:02)
--- NOTE | 2016-08-27 14:11 | Discharge Summary ---
Hospital Course - Hospital Course Hospital Course: Ms. Garcia presented with abdominal pain. CT of the abdomen and pelvis revealed diverticulitis. She was admitted for management of diverticulitis. She was initiated on metronidazole and Levaquin. Urinary analysis revealed an infection and this returned E. coli which is pansensitive. During hospitalization the patient complained of having dark stool and her Xarelto was held gastroenterology was consulted and she had an upper endoscopy the next day which showed evidence of gastroesophageal reflux disease. Xarelto was restarted. Of note she had a stool sent for Hemoccult which was negative for presence of blood. The patient's tolerated advancing her diet and by discharge her abdominal pain had significantly improved. By discharge she had met maximum benefit of hospitalization. I spent 37 minutes coordinating this discharge. - Time spent with patient Time with patient DS: Greater than 30 minutes Diagnosis - Discharge Diagnosis (1) History of melena Status: Acute (2) Acute diverticulitis Status: Acute (3) UTI (urinary tract infection) Status: Acute (4) Atrial fibrillation Status: Acute (5) Diabetes mellitus Status: Chronic (6) Hypertension Status: Chronic Discharge Plan - Discharge Data Disposition: Disch To Home/Self Care Condition at Discharge: Stable Discharge Diet: advance to your usual diet Activity: resume usual activities as tolerated Hygiene: no restrictions Weight Bearing at Discharge: full weight bearing - Discharge Medications New Levofloxacin Tab [Levaquin Tab] 500 mg PO DAILY #7 tablet metroNIDAZOLE TAB [Flagyl Cap/Tab] 500 mg PO TID #21 tablet Continue Pravastatin [Pravachol] 40 mg PO BEDTIME Furosemide Tab [Lasix Tab] 40 mg PO DAILY Pantoprazole Tab [Protonix Tab] 40 mg PO DAILY Digoxin Tab [Lanoxin Tab] 0.25 mg PO DAILY Insulin Detemir [Levemir] 35 unit SUBCUT BEDTIME Albuterol Sulfate [Ventolin HFA] 2 puff INH Q6H PRN PRN Reason: Shortness Of Breath/Wheezing Metoprolol Tartrate Tab [Lopressor Tab] 100 mg PO DAILY dilTIAZem HCl [Cartia XT] 300 mg PO DAILY Potassium Chloride [Klor-Con M20] 20 meq PO QID Rivaroxaban [Xarelto] 20 mg PO DAILY Albuterol/Ipratropium Neb [Duoneb] 3 ml RESP TX RT Q6H PRN PRN Reason: Shortness Of Breath Vit C/Vit E AC/Lut/Copper/Zinc [Preservision Lutein Softgel] 1 each PO BID Losartan [Cozaar] 50 mg PO DAILY - Follow Up or Referral - Forms/Instructions Instructions: Diverticulitis (DC), Post Endoscopic Procedure Exam - Constitutional Vitals: Period Temp Pulse Resp BP Sys/Camacho Pulse Ox Last 24 Hr 96.8 F-98.6 F 55-67 16-20 118-159/60-90 91-99 General appearance: normal weight, no acute distress - Head Head exam: Present: normal inspection, normocephalic, atraumatic - Eye Eye exam: Present: EOMI Pupils: Present: CHANDU - ENT ENT exam: Present: normal exam - Neck Neck exam: Present: normal inspection - Respiratory Respiratory exam: Present: clear to auscultation bilaterally. Absent: accessory muscle use, prolonged expiratory phase, wheezes - Cardiovascular Cardiovascular exam: Present: regular rate and rhythm. Absent: bradycardia, irregular rhythm, systolic murmur - GI/Abdominal GI/Abdominal exam: Present: normal bowel sounds. Absent: ascites, distended, hypoactive bowel sounds, tenderness - Extremities Exam Extremities exam: Present: normal inspection. Absent: normal capillary refill, full ROM, edema Discharge Results Procedures and tests throughout hospitalization: Pending Orders 08/27/16 Occult Blood, Stool Routine 08/28/16 04:00 BMP [Basic Metabolic Panel] IN AM Comp Blood Count Auto Diff IN AM Labs on day of discharge: Labs from last 24 hours 08/27/16 08/26/16 08/26/16 07:10 19:01 15:20 POC Glucose 90 163 H 119 H DS: Provider Date of admission: 08/25/16 11:37 Primary care physician: Phil Bonner MD Attending physician on admission: Krystina Desouza MD Consults: 08/26/16 13:08 Consult to Physician [CONS] Routine Comment: Melena and diverticulitis Consulting Provider: Fernando Travis Consulting Provider Notified: Yes When should Consulting Provider be notified: Now Consult to Specialist Group: Gastroenterology When should Consulting Provider be notified: Now Person Notified: suzie bro Date Notified: 08/26/16 Time Notified: 14:43 Discharging clinician: Krystina Desouza MD Expected date of discharge: 08/27/16
[2016-08-27] MEDS: DIGOXIN 0.25 MG TABLET PO SCH (14:30)
[2016-08-27 16:45] VITALS: BP 137/74
[2016-08-27] MEDS ORDERED: RIVAROXABAN 20 MG TABLET PO SCH (17:00)
== END 2016-08-27 17:18 | disposition home health service (06) | DRG 392 ==
LOC: EDBD → EDUNIT# → N.ED 08:48 → N.EDINP 11:37 → N.3E 12:55
PROVIDERS: ADMIT Internal Medicine; ATTEND Internal Medicine

== ENCOUNTER 2016-10-05 04:42 | Inpatient (IN) ==
--- NOTE | 2016-10-05 05:36 | Emergency Department Note ---
Arrival - Arrival Chief Complaint: GI Bleed/Rectal ED Nursing Triage Note: patient is a transfer from [facility], states she was awaken from sleep with lower abd pain and noticed bright red blood with clots in the toilet post bm. Mode of Arrival: Stretcher Time Seen by Provider: 10/05/16 05:14 - History of Present Illness HPI Narrative: This is a 75-year-old white female with a history of atrial fibrillation on Xarelto, previous TIA, COPD, type 2 diabetes, obstructive sleep apnea on CPAP, cardiac pacer history of congestive heart failure from hypertension and diverticulitis who presents with left lower quadrant abdominal pain and bright red blood per rectum which started early this morning. The patient had a colonoscopy 5 days ago where 2 polyps were removed. Allergies/Adverse Reactions: Allergies Allergy/AdvReac Type Severity Reaction Status Date / Time latex Allergy ITCHING Verified 01/18/16 11:48 Latex, Natural Rubber Allergy RASH Verified 01/18/16 11:48 Penicillins Allergy RASH Verified 01/18/16 11:48 propoxyphene [From Darvon] Allergy RASH Verified 01/18/16 11:48 Sulfa (Sulfonamide Allergy RASH Verified 01/18/16 11:48 Antibiotics) sulfamethoxazole Allergy Nausea Verified 01/18/16 11:48 [From Bactrim] trimethoprim [From Bactrim] Allergy Nausea Verified 01/18/16 11:48 PLASTIC TAPE Allergy Intermediate ITCHING Uncoded 01/18/16 11:48 Home Medications: Home Medications Medication Instructions Recorded Confirmed Type Furosemide Tab [Lasix Tab] 40 mg PO DAILY 06/26/14 10/05/16 History Pantoprazole Tab [Protonix Tab] 40 mg PO DAILY 06/26/14 10/05/16 History Pravastatin [Pravachol] 40 mg PO BEDTIME 06/26/14 10/05/16 History Digoxin Tab [Lanoxin Tab] 0.25 mg PO DAILY 10/03/14 10/05/16 History Insulin Detemir [Levemir] 35 unit SUBCUT BEDTIME 08/01/15 10/05/16 History Albuterol Sulfate [Ventolin HFA] 2 puff INH Q6H PRN 08/25/16 10/05/16 History Albuterol/Ipratropium Neb [Duoneb] 3 ml RESP TX RT Q6H PRN 08/25/16 10/05/16 History Losartan [Cozaar] 50 mg PO DAILY 08/25/16 10/05/16 History Metoprolol Tartrate Tab [Lopressor 100 mg PO DAILY 08/25/16 10/05/16 History Tab] Potassium Chloride [Klor-Con M20] 20 meq PO QID 08/25/16 10/05/16 History Rivaroxaban [Xarelto] 20 mg PO DAILY 08/25/16 10/05/16 History Vit C/Vit E AC/Lut/Copper/Zinc 1 each PO BID 08/25/16 10/05/16 History [Preservision Lutein Softgel] dilTIAZem HCl [Cartia XT] 300 mg PO DAILY 08/25/16 10/05/16 History Azithromycin [Azithromycin Z Pack] 250 mg PO DIRECTED 10/05/16 10/05/16 History Meloxicam [Mobic] 15 mg PO DAILY 10/05/16 10/05/16 History Review of System - Review of System Constitutional: Absent: fever, night sweats Eyes: Absent: redness, vision change Head/Ears/Nose/Throat: Absent: epistaxis, nasal drainage Respiratory: Absent: respiratory distress, wheezing Cardiovascular: Absent: dyspnea on exertion, orthopnea Gastrointestinal: Absent: diarrhea, constipation Genitourinary female: Absent: dysuria, urgency Musculoskeletal: Absent: joint swelling, lower back pain Skin: Absent: change in color, change in hair/nails Neurological: Absent: numbness, paresthesias Psychiatric: Absent: suicidal thoughts, homicidal thoughts Endocrine: Absent: heat intolerance, polydipsia Hematological/Lymphatic: Absent: easy bruising, lymphadenopathy Allergic/Immunologic: Absent: urticaria, itchy eyes Medical,Surgical,& Family Hx - Medical History Cardio: History of: Cardiac Dysrhythmia (A-FIB, afib with rvr), CHF, Hypertension, Pacemaker (left chest wall), Cardiovascular Problems Psychological: History of: Anxiety Disorders, Depression Neurology: History of: TIA No history of: Seizures HEENT: History of: Ear Problem, Eye Problem, Dental Problems, Glaucoma, HEENT Problems Endocrine: History of: Diabetes Mellitus (IDDM) (levimir bid), Diabetes Mellitus (NIDDM) (TYPE 2), Dyslipidemia Rheumatology: History of;: Rheumatological Problems (pt reports rheumatoid arth) Respiratory: History of: COPD, Obstructive Sleep Apnea (uses c-pap), Pneumonia, Respiratory Problems (recurrent shortness of breath) Genitourinary: History of: Bladder Problem (stress incontinence), Recurring Urinary Tract Infections Gastrointestinal: History of: Diverticulitis/ Diverticulosis, GERD, GI Problems (hemmeroids, gall bladder removal) Musculoskeletal: History of: Back/Neck Problems (pt reports pain), Musculoskeletal Problems (pt reports scoliosis, prior left wrist fx) Hematology: History of: Anemia, Clotting Problems No history of: Blood Transfusion Reaction Other: History of: Miscellaneous Medical Problems (benign mass removed from left breast) No history of: Anesthesia Reactions - Surgical History Cardiac Surgeries: Sugical HX of: Cardiac Catheterization () Thoracic Surgeries: Patient denies;: Lobectomy Neurologic Surgeries: Patient denies: Neurologic Surgery HEENT Surgeries: Surgical HX of: Eye Surgery, Tonsilectomy & Adenoidectomy Abdominal Surgeries: Surgical HX of: Appendectomy, Cholecystectomy, Colonoscopy Reproductive Surgeries: Surgical HX of;: Breast Surgery (biopsy), Section, Hysterectomy Orthopedic Surgeries: Surgical HX of;: Orthopedic Surgery - Family History Family History: Reports;: Family Cancer (sister), Family Diabetes, Family Heart Disease (PARENTS), Family Hypertension (father, siblings) - Social History Smoking Status: Former smoker Frequency of Alcohol Use: None Type of Drug Use: None Exam Vital Signs: Vital Signs Temperature 97.8 F 10/05/16 04:49 Pulse Rate 82 10/05/16 04:49 Respiratory Rate 20 10/05/16 04:49 Blood Pressure 153/66 10/05/16 04:49 O2 Sat by Pulse Oximetry 94 L 10/05/16 04:49 - General Exam limited due to: ALOC - Head Head exam: Present: atraumatic, normocephalic - Eye Eye exam: Present: normal appearance, PERRL, EOMI - ENT ENT exam: Present: normal exam, normal oropharynx - Neck Neck exam: Present: normal inspection, full ROM - Chest Chest inspection: Present: normal inspection, symmetric chest wall rise - Respiratory Respiratory exam: Present: normal lung sounds bilaterally - Cardiovascular Cardiovascular exam: Present: regular rate, normal rhythm - Abdominal Exam Abdominal exam: Present: other (Tenderness left lower quadrant without guarding or rebound) - Extremities Exam Extremities exam: Present: normal inspection, full ROM - Back Exam Back exam: Present: normal inspection, full ROM - Neurological Exam Neurological exam: Present: alert, oriented X3, CN II-XII intact - Psychiatric Psychiatric exam: Present: normal affect - Skin Skin exam: Present: warm, dry Course Course Narrative: Because the patient has bright red blood per rectum 5 days after colonoscopy in the reasonable that she should be admitted to the hospital for serial H&H's to assure that the rectal bleeding has stabilized. Results - Labs CBC & BMP: 10/05/16 05:45 10/05/16 05:45
[2016-10-05 07:24] LABS: Basophils % 0.3 % (0.0-0.8); Eosinophils # 0.2 10*3/uL (0.0-0.87); Eosinophils % 1.4 % (0.00-10.9); Hematocrit 32.6 VOL% (35.7-47.0); Hemoglobin 10.5 GM/DL (12.0-16.0); Immature Granulocytes % 0.7 %; Lymphocytes # 1.3 10*3/uL (1.4-4.0); Lymphocytes % 9.1 % (21.3-54.2); Mean Corpuscular HGB Conc 32.2 GM/DL (32-36); Mean Corpuscular Hemoglobin 24 PG (27-34); Mean Corpuscular Volume 72.9 FL (87-102); Mean Platelet Volume 10.7 FL (9.6-12.0); Monocytes # 1.1 10*3/uL (0.11-0.8); Neutrophils # 11.3 10*3/uL (1.4-7.4); Neutrophils % 80.5 % (38.7-73.9); Platelet Count 292 T/CUMM (130-400); Red Blood Count 4.47 MC/CUMM (3.8-5.5); Red Cell Distribution Width 20.2 % (9.3-17.3)
[2016-10-05 07:36] LABS: Apearance,Urine CLEAR (Clear); Bacteria,Urine Few /HPF (Few); Bilirubin,Urine Negative (Negative); Blood, Urine Small mg/dL (Negative); Glucose,Urine (UA) Negative (Negative); Ketones,Urine Negative (Negative); Mucus,Urine Occasional /LPF (Occasional); Nitrite,Urine Negative (Negative); Protein,Urine Negative; RBC,Urine 1 /HPF (0-4); Squamous Epithelial Cell,Urine Occasional /HPF (0-10); Urine Color Straw (Yellow); Urine Specific Gravity 1.018 (1.001-1.035); Urine Urobilinogen < 2.0 EU/DL (0.2-1.0); WBC,Urine 5 /HPF (0-6)
[2016-10-05 08:04] LABS: Albumin 3.5 G/DL (3.4-5.0); Bilirubin,Total 0.4 MG/DL (0.2-1.0); Calcium 8.5 MG/DL (8.5-10.1); Osmolality,Calculated 282.1 MOS/KG (273-304); Potassium 3.5 MMOL/L (3.5-5.1)
[2016-10-05] MEDS ORDERED: ONDANSETRON 4 MG/2 ML VIAL IV PRN (08:06)
[2016-10-05 08:34] LABS: INR 1.2; PT Patient Result 12.7 SECS
--- NOTE | 2016-10-05 09:15 | CT Report ---
History: Lower abdominal pain. Hematochezia. Recent colonoscopy with biopsy Date: 10/05/2016 Study: CT abdomen and pelvis with IV contrast Comparison exam: Noncontrast CT abdomen and pelvis September 15, 2016 Technique: Spiral CT sections were obtained from the lung bases to the pubic symphysis following oral contrast and 100 mL Omnipaque [address] exam was performed using one or more of the following dose reduction techniques: Automated exposure control, adjustment of the mA and/or kV according to patient size, or use of iterative reconstruction technique. CT abdomen: There is an oval 2.1 cm noncalcified pulmonary nodule in the right middle lobe which was present in 2008, 1.3 cm diameter at that time. There is also a 7 mm noncalcified nodule in the lingula which was also present in 2009, measuring 6 mm at that time. There is some nonspecific mild strandy atelectasis or scarring in the right middle lobe. There is no pleural or pericardial effusion. There is no evidence of pneumoperitoneum. The liver, spleen, pancreas, adrenal glands, and bile ducts are unremarkable without change. The patient is status post prior cholecystectomy. There are numerous rounded water density cysts scattered in both kidneys, the largest of which measures approximately 19 mm diameter in the lower left kidney. There is no aneurysm of the moderately calcified abdominal aorta. There is no wesley bowel obstruction. There is no high density contrast material within the colon to suggest active arterial colonic bleeding. There is no wesley lymphadenopathy by short axis diameter criteria. There is prominent degenerative disc disease in the mid to lower lumbar spine. CT pelvis: There is no soft tissue mass in the pelvis. The uterus is surgically absent. The bladder is moderately distended, but grossly unremarkable otherwise. There is no pelvic lymphadenopathy. Impression: No acute abdominal process is identified when compared to the September 15, 2016 exam as detailed above. Benign renal cysts. Previous cholecystectomy and hysterectomy Noncalcified lung nodules in the lingula and right middle lobe which have been present dating back to the 2008 CT chest PROCEDURE INTERPRETED AT [facility] DEPARTMENT OF RADIOLOGY Final Report Signed by: Dr. Tara Enrique
--- NOTE | 2016-10-05 09:46 | Hospitalist History & Physical ---
<Washington Winkler - Last Filed: 10/05/16 09:15> Assessment and Plan - Time spent with patient Time spent with patient: Greater than 30 minutes (1) Abdominal pain Status: Acute Assessment and plan: Patient reports bloody diarrhea 1 with diffuse lower abdominal pain. She had a recent colonoscopy on Thursday by Dr. Travis. She will be admitted for pain management and anemia profile. She is currently hemodynamically stable. We will consult GI. Current Visit: Yes (2) Diabetes mellitus Status: Chronic Assessment and plan: Continue home medications. Accu-Cheks before meals at bedtime Current Visit: No Qualifiers: Diabetes mellitus type: type 1 Diabetes mellitus complication status: with neurologic complications (3) Congestive heart failure (CHF) Status: Acute Assessment and plan: Patient does have right lower extremity edema. Continue Lasix. Continue oxygen. Current Visit: Yes (4) COPD (chronic obstructive pulmonary disease) Status: Chronic Assessment and plan: Continue oxygen. Breathing treatments as needed. Current Visit: No Qualifiers: COPD type: COPD with acute lower respiratory infection Qualified Code(s): J44.0 - Chronic obstructive pulmonary disease with acute lower respiratory infection (5) Hypertension Status: Chronic Assessment and plan: Continue home medications. Current Visit: No Qualifiers: Hypertension type: essential hypertension Qualified Code(s): I10 - Essential (primary) hypertension (6) Pacemaker Status: Chronic Current Visit: No History of Present Illness Chief complaint: Bloody diarrhea History of present illness: Ms. Garcia is a 75 year old white female with a past medical history significant for hypertension, congestive heart failure, atrial fibrillation, cardiac pacemaker, IDDM, COPD and diverticulitis who presents to the ED today with complaints of bloody diarrhea having onset this morning at approximately 0300. The patient lives independently at [facility] and reports a recent history of diverticulitis with colonoscopy on Thursday per Dr. Travis. The colonoscopy revealed polyps and evidence of diverticulosis. Ms. Garcia reports that she had no complications prior to this morning when she felt nauseated and felt the urge to use the restroom resulting in "a lot" of blooding loose stool. She reports only one episode, but confirms continued diffuse lower abdominal pain which she rates as a 6/10 and describes as "uncomfortable". She also confirms one episode of lightheadedness, shortness of breath, nausea without vomiting, diffuse abdominal pain, decreased appetite, right lower extremity edema. She denies headache, blurry vision, chest pain, palpitations, syncope. Lab work reveals WBC 14, Hgb 10.5, Hct 32.6, BUN 13, Creatinine 0.50, HgbA1c 6.5. Case has been discussed with Dr. Cordova and the patient will be admitted for observation with GI consultation. She is a FULL CODE. Home medications have been reviewed. Home Medications Medication Instructions Recorded Confirmed Type Furosemide Tab [Lasix Tab] 40 mg PO DAILY 06/26/14 10/05/16 History Pantoprazole Tab [Protonix Tab] 40 mg PO DAILY 06/26/14 10/05/16 History Pravastatin [Pravachol] 40 mg PO BEDTIME 06/26/14 10/05/16 History Digoxin Tab [Lanoxin Tab] 0.25 mg PO DAILY 10/03/14 10/05/16 History Insulin Detemir [Levemir] 35 unit SUBCUT BEDTIME 08/01/15 10/05/16 History Albuterol Sulfate [Ventolin HFA] 2 puff INH Q6H PRN 08/25/16 10/05/16 History Albuterol/Ipratropium Neb [Duoneb] 3 ml RESP TX RT Q6H PRN 08/25/16 10/05/16 History Losartan [Cozaar] 50 mg PO DAILY 08/25/16 10/05/16 History Metoprolol Tartrate Tab [Lopressor 100 mg PO DAILY 08/25/16 10/05/16 History Tab] Potassium Chloride [Klor-Con M20] 20 meq PO QID 08/25/16 10/05/16 History Rivaroxaban [Xarelto] 20 mg PO DAILY 08/25/16 10/05/16 History Vit C/Vit E AC/Lut/Copper/Zinc 1 each PO BID 08/25/16 10/05/16 History [Preservision Lutein Softgel] dilTIAZem HCl [Cartia XT] 300 mg PO DAILY 08/25/16 10/05/16 History Acetaminophen Tab [Tylenol Tab] 500 mg PO Q4H PRN 10/05/16 10/05/16 History Azithromycin [Azithromycin Z Pack] 250 mg PO DIRECTED 10/05/16 10/05/16 History Meloxicam [Mobic] 15 mg PO DAILY 10/05/16 10/05/16 History Allergies Allergy/AdvReac Type Severity Reaction Status Date / Time latex Allergy ITCHING Verified 01/18/16 11:48 Latex, Natural Rubber Allergy RASH Verified 01/18/16 11:48 Penicillins Allergy RASH Verified 01/18/16 11:48 propoxyphene [From Darvon] Allergy RASH Verified 01/18/16 11:48 Sulfa (Sulfonamide Allergy RASH Verified 01/18/16 11:48 Antibiotics) sulfamethoxazole Allergy Nausea Verified 01/18/16 11:48 [From Bactrim] trimethoprim [From Bactrim] Allergy Nausea Verified 01/18/16 11:48 PLASTIC TAPE Allergy Intermediate ITCHING Uncoded 01/18/16 11:48 Medical,Surgical,& Family Hx - Medical History Cardio: History of: Cardiac Dysrhythmia (A-FIB, afib with rvr), CHF, Hypertension, Pacemaker (left chest wall), Cardiovascular Problems Psychological: History of: Anxiety Disorders, Depression Neurology: History of: TIA No history of: Seizures HEENT: History of: Ear Problem, Eye Problem, Dental Problems, Glaucoma, HEENT Problems Endocrine: History of: Diabetes Mellitus (IDDM) (levimir bid), Diabetes Mellitus (NIDDM) (TYPE 2), Dyslipidemia Rheumatology: History of;: Rheumatological Problems (pt reports rheumatoid arth) Respiratory: History of: COPD, Obstructive Sleep Apnea (uses c-pap), Pneumonia, Respiratory Problems (recurrent shortness of breath) Genitourinary: History of: Bladder Problem (stress incontinence), Recurring Urinary Tract Infections Gastrointestinal: History of: Diverticulitis/ Diverticulosis, GERD, GI Problems (hemmeroids, gall bladder removal) Musculoskeletal: History of: Back/Neck Problems (pt reports pain), Musculoskeletal Problems (pt reports scoliosis, prior left wrist fx) Hematology: History of: Anemia, Clotting Problems No history of: Blood Transfusion Reaction Other: History of: Miscellaneous Medical Problems (benign mass removed from left breast) No history of: Anesthesia Reactions - Surgical History Cardiac Surgeries: Sugical HX of: Cardiac Catheterization () Thoracic Surgeries: Patient denies;: Lobectomy Neurologic Surgeries: Patient denies: Neurologic Surgery HEENT Surgeries: Surgical HX of: Eye Surgery, Tonsilectomy & Adenoidectomy Abdominal Surgeries: Surgical HX of: Appendectomy, Cholecystectomy, Colonoscopy Reproductive Surgeries: Surgical HX of;: Breast Surgery (biopsy), Section, Hysterectomy Orthopedic Surgeries: Surgical HX of;: Orthopedic Surgery - Family History Family History: Reports;: Family Cancer (sister), Family Diabetes, Family Heart Disease (PARENTS), Family Hypertension (father, siblings) - Social History Smoking Status: Former smoker Frequency of Alcohol Use: None Type of Drug Use: None Marital Status: Single Lives With:: Alone Functional capacity: independent ambulation 12 point system: reviewed and no additional remarkable complaints except as stated Exam - Constitutional Vitals: Period Temp Pulse Resp BP Sys/Camacho Pulse Ox Last 24 Hr 97.8 F-97.8 F 76-91 16-20 129-163/58-80 94-98 General appearance: mild distress, over weight - Head Head exam: Present: normal inspection, normocephalic, atraumatic - Eye Eye exam: Present: EOMI Pupils: Present: CHANDU - ENT ENT exam: Present: normal exam - Neck Neck exam: Present: normal inspection. Absent: lymphadenopathy, tenderness, thyromegaly - Respiratory Respiratory exam: Present: decreased breath sounds. Absent: rhonchi, wheezes - Cardiovascular Cardiovascular exam: Present: irregular rhythm - GI/Abdominal GI/Abdominal exam: Present: normal bowel sounds, guarding, tenderness. Absent: mass, Urena's sign - Extremities Exam Extremities exam: Present: edema (RLE) - Neurological Exam Neurological exam: Present: alert, oriented X3, CN II-XII intact, reflexes normal - Psychiatric Psychiatric exam: Present: normal affect, normal mood - Skin Skin exam: Present: warm, dry. Absent: cyanosis, diaphoretic Results - Labs CBC & BMP: 10/05/16 05:45 10/05/16 05:45 Lab Results: I have reviewed the past 24 hour labs - EKG EKG results: interpreted by ERMD (paced, uncertain irregular rhythm) - Diagnostic Findings Procedure: CT Abdomen and Pelvis: image reviewed by me, report reviewed by me ( no acute abdominal process) <Lisa Cordova - Last Filed: 10/05/16 12:04> History of Present Illness History of present illness: Ms. Garcia is a 75 year old female with multiple medical issues admitted for bloody diarrhea. She had another episode of bloody stool this am on admission.She took her xarelto this am prior to the onset of bleed. Her left third wound noted and her right leg noted to be swollen. Continue with current management. Doppler USS of right leg to r/o DVT. Wound care consult. GI to see.Patient was seen, examined and discussed with the GENERAL INTERN. Exam - Constitutional Vitals: Period Temp Pulse Resp BP Sys/Camacho Pulse Ox Last 24 Hr 97.8 F-98.0 F 76-97 16-24 129-163/58-91 91-98 Results - Labs CBC & BMP: 10/05/16 09:36 10/05/16 05:45
[2016-10-05 09:47] LABS: Hematocrit 34.8 VOL% (35.7-47.0)
[2016-10-05] MEDS: SODIUM CHLORIDE 0.9% 1,000 ML IV SCH (10:04)
[2016-10-05] MEDS: PANTOPRAZOLE 40 MG VIAL IV SCH (10:22)
[2016-10-05] MEDS: ACETAMINOPHEN 325 MG TABLET PO PRN ×2 (10:23→18:07)
--- NOTE | 2016-10-05 12:22 | Gastrointestinal Consult Note ---
Assessment and Plan - Time spent with patient Time spent with patient: Greater than 30 minutes (1) Lower GI hemorrhage Status: Acute Current Visit: Yes (2) halfway current use of anticoagulant therapy Status: Chronic Current Visit: No (3) Atrial fibrillation with normal ventricular rate Status: Chronic Current Visit: No (4) Abdominal pain Status: Acute Assessment and plan: PLEASE NOTE -- automatic citation of patient information is unavoidable in this electronic note. I have made a reasonable effort to review the information cited , but it is not a part of my evaluation, impression, or recommendation unless specifically discussed in the dictated text that follows. As well, voice recognition software was used in the creation of this clinical note. Reasonable effort was made to identify and correct gross errors. Despite proofreading, errors in laydown machine operator may be present, including nonsense verbiage at times. If you encounter such an error, please contact me at for discussion and correction. -- Dr. Pérez Chief complaint/Consult Question: Lower GI bleed Consult requested by: LORNA History of present illness: This is a new patient, a 75-year-old woman with atrial fibrillation on Xarelto, Mobic, who underwent colonoscopy 5 days ago for post diverticulitis follow-up. Was found to have 2 polyps in the descending colon, 8 mm polyp removed by hot snare, 6 mm polyp removed by hot biopsy fulguration. Patient reports that she woke up at 3 AM this morning with some abdominal pain, went to the bathroom and passed a large bloody bowel movement. Has had 2 smaller bloody bowel movement since then, last approximately 1130 this afternoon. Abdominal pain as a dull achy 5-6 out of 10 , persistent in the left lower quadrant. No associated fevers, chills. CT scan negative for inflammation or clear active bleeding. Last dose of Xarelto was yesterday morning on October 04. Does not take baby aspirin. Patient's hemoglobin 10.5 on admission, most recent labs from August hemoglobin of 12.1, prior labs from January 2016 and July 2016 range from 10.9-11.3. Prior normal hemoglobin has not been consistent since prior to September 2014. INR today is 1.2, normal platelets. 2 units of blood of been ordered by the ER, have not been transfused GI review of systems included: heartburn, regurgitation, early satiety, dysphagia, odynophagia, abdominal pain, nausea, vomiting, hematemesis, weight loss, weight gain, fever, chills, fatigue, decreased appetite, diarrhea, constipation, melena, bloating, malodorous flatus, anal pain, or NSAID use, and was negative except as noted above. REVIEW OF SYSTEMS: Complete other review of systems negative except as noted in the HPI [and any listed symptoms here]. Outpatient medications: [Personally reviewed Most significant for Xarelto 20 mg daily, Mobic 15 mg p.o. daily Inpatient medications: Personally reviewed Appropriately held Xarelto and Mobic Protonix 40 mg IV daily Zofran as needed Sodium chloride IV, 1 L at 125 mls per hour Past Medical History: Personally reviewed Atrial fibrillation on Xarelto Previous TIA COPD Type 2 diabetes Obstructive sleep apnea on CPAP Cardiac pacemaker Congestive heart failure Hypertension Diverticulitis 2 colon polyps, removed October 01, 2016 Social history: Negative tobacco. No significant alcohol Family history: No GI related malignancy PHYSICAL EXAMINATION: CONSTITUTIONAL: Vital signs reviewed as documented above. In no acute distress. Nontoxic-appearing. EYES: Anicteric conjunctiva. Extra-ocular movements are intact and symmetric. EARS: Able to hear speech at conversational volume level, no external trauma/ masses. MOUTH: No oral/mouth lesions or ulcers. NECK: No masses or crepitus. Thyroid is of normal size and symmetric. HEART: Regular rate, regular rhythm LUNGS: Clear to auscultation bilaterally. No increased work of breathing or accessory muscle use. GI/ABDOMEN: Overweight abdomen abdomen, soft, mildly tender to deep palpation diffusely, worse in the left lower quadrant. no rebound tenderness, nondistended, no rigidity. No palpable mass. No appreciable hepatosplenomegaly. SKIN: Significant pallor. No rash on face, arms, or hands. No palpable lesions MUSCULOSKELETAL: Laying in moving comfortably in bed. Muscle tone appears normal without any abnormal movements. PSYCH: Normal affect. Alert and oriented to person, place, and time. Laboratory: Personally reviewed CBC14/10 0.5/292, neutrophilic predominance HVN896/3 0.5/1 //13/0 0.5, glucose 98 Total bili 0.4, AST 7, ALT 11, alk phos 95 CRP 2.19, mildly elevated UAsmall blood, 1 RBC, less than 2 urobilinogen, few bacteria Radiology: Personally reviewed reports CT abdomen and pelvis with IV contrast Endoscopy: I have personally reviewed the patient's colonoscopy report from October 01, 2016 Diverticulosis without diverticulitis in the descending and sigmoid colon Descending colon polyps 2, 8 mm removed by hot snare, 6 mm removed by hot biopsy Assessments: #Lower GI bleeding. Most likely secondary to delayed post-polypectomy bleed from October 01, 2016. Complicated by patient's use of Xarelto for atrial fibrillation. Currently stable. Patient asymptomatic without symptoms of orthostasis. I anticipate that the bleeding will stop on its own as Xarelto becomes ineffective, and polypectomy sites continue to heal. #Abdominal pain. With mild leukocytosis, in the setting of postprocedure bleeding. No clear evidence of colitis or diverticulitis on the CT scan, and abdominal pain could be secondary to GI upset with bleeding and polypectomy site. No fevers or other feelings of unwellness. #correction use of anti-coagulation atrial fibrillation: currently stable. Holding anticoagulation due to current acute GI bleeding. This does place patient at increased risk for secondary stroke. This was discussed at length with the patient today who understands the risk-benefit between the bleeding and the stroke risk. #Other specified counseling -- The patient was seen for greater than 30 minutes. The patient was counseled for greater than 50% of this time regarding differential diagnosis, likely diagnosis, diagnostic and therapeutic alternatives, risks/benefits/alternatives of medications and procedures, and plan of care generally. The patient expressed understanding and wishes to proceed. Recommendations: -Fluid resuscitation, transfuse hemoglobin less than 8, consider goal of 10 if patient has symptomatic anemia or cardiac symptoms -Discussed with patient option for continued observation versus empiric bowel prep if bleeding were to continue. Patient prefers to monitor for persistent bleeding, especially his bleeding seems to have slowed, reevaluate in the morning, and then bowel prep and colonoscopy if needed with Dr. Travis. This will also give additional time for the Xarelto to wash out of the patient's bloodstream. Consider bowel prep for possible colonoscopy tomorrow if bleeding does not stop on its own -Continue to monitor leukocytosis, fevers, abdominal pain, and if symptoms worsen, or do not resolve, consider empiric treatment for postprocedural colitis versus diverticulitis. Continue to hold Xarelto, low-dose aspirin 81 mg daily can be used while Xarelto is being held, patient agrees to avoid both today and reassess tomorrow Joana Pérez MD, MPH STAFF SOFTWARE TEST DEVELOPER Current Visit: Yes History of Present Illness History of present illness: Ms. Garcia is a 75 year old female Home Medications Medication Instructions Recorded Confirmed Type Furosemide Tab [Lasix Tab] 40 mg PO DAILY 06/26/14 10/05/16 History Pantoprazole Tab [Protonix Tab] 40 mg PO DAILY 06/26/14 10/05/16 History Pravastatin [Pravachol] 40 mg PO BEDTIME 06/26/14 10/05/16 History Digoxin Tab [Lanoxin Tab] 0.25 mg PO DAILY 10/03/14 10/05/16 History Insulin Detemir [Levemir] 35 unit SUBCUT BEDTIME 08/01/15 10/05/16 History Albuterol Sulfate [Ventolin HFA] 2 puff INH Q6H PRN 08/25/16 10/05/16 History Albuterol/Ipratropium Neb [Duoneb] 3 ml RESP TX RT Q6H PRN 08/25/16 10/05/16 History Losartan [Cozaar] 50 mg PO DAILY 08/25/16 10/05/16 History Metoprolol Tartrate Tab [Lopressor 100 mg PO DAILY 08/25/16 10/05/16 History Tab] Potassium Chloride [Klor-Con M20] 20 meq PO QID 08/25/16 10/05/16 History Rivaroxaban [Xarelto] 20 mg PO DAILY 08/25/16 10/05/16 History Vit C/Vit E AC/Lut/Copper/Zinc 1 each PO BID 08/25/16 10/05/16 History [Preservision Lutein Softgel] dilTIAZem HCl [Cartia XT] 300 mg PO DAILY 08/25/16 10/05/16 History Acetaminophen Tab [Tylenol Tab] 500 mg PO Q4H PRN 10/05/16 10/05/16 History Azithromycin [Azithromycin Z Pack] 250 mg PO DIRECTED 10/05/16 10/05/16 History Meloxicam [Mobic] 15 mg PO DAILY 10/05/16 10/05/16 History Allergies Allergy/AdvReac Type Severity Reaction Status Date / Time latex Allergy ITCHING Verified 01/18/16 11:48 Latex, Natural Rubber Allergy RASH Verified 01/18/16 11:48 Penicillins Allergy RASH Verified 01/18/16 11:48 propoxyphene [From Darvon] Allergy RASH Verified 01/18/16 11:48 Sulfa (Sulfonamide Allergy RASH Verified 01/18/16 11:48 Antibiotics) sulfamethoxazole Allergy Nausea Verified 01/18/16 11:48 [From Bactrim] trimethoprim [From Bactrim] Allergy Nausea Verified 01/18/16 11:48 PLASTIC TAPE Allergy Intermediate ITCHING Uncoded 01/18/16 11:48 Medical,Surgical,& Family Hx - Medical History Cardio: History of: Cardiac Dysrhythmia (A-FIB, afib with rvr), CHF, Hypertension, Pacemaker (left chest wall), Cardiovascular Problems Psychological: History of: Anxiety Disorders, Depression Neurology: History of: TIA No history of: Seizures HEENT: History of: Ear Problem, Eye Problem, Dental Problems, Glaucoma, HEENT Problems Endocrine: History of: Diabetes Mellitus (IDDM) (levimir bid), Diabetes Mellitus (NIDDM) (TYPE 2), Dyslipidemia Rheumatology: History of;: Rheumatological Problems (pt reports rheumatoid arth) Respiratory: History of: COPD, Obstructive Sleep Apnea (uses c-pap), Pneumonia, Respiratory Problems (recurrent shortness of breath) Genitourinary: History of: Bladder Problem (stress incontinence), Recurring Urinary Tract Infections Gastrointestinal: History of: Diverticulitis/ Diverticulosis, GERD, GI Problems (hemmeroids, gall bladder removal) Musculoskeletal: History of: Back/Neck Problems (pt reports pain), Musculoskeletal Problems (pt reports scoliosis, prior left wrist fx) Hematology: History of: Anemia, Clotting Problems No history of: Blood Transfusion Reaction Other: History of: Miscellaneous Medical Problems (benign mass removed from left breast) No history of: Anesthesia Reactions - Surgical History Cardiac Surgeries: Sugical HX of: Cardiac Catheterization () Thoracic Surgeries: Patient denies;: Lobectomy Neurologic Surgeries: Patient denies: Neurologic Surgery HEENT Surgeries: Surgical HX of: Eye Surgery, Tonsilectomy & Adenoidectomy Abdominal Surgeries: Surgical HX of: Appendectomy, Cholecystectomy, Colonoscopy Reproductive Surgeries: Surgical HX of;: Breast Surgery (biopsy), Section, Hysterectomy Orthopedic Surgeries: Surgical HX of;: Orthopedic Surgery - Family History Family History: Reports;: Family Cancer (sister), Family Diabetes, Family Heart Disease (PARENTS), Family Hypertension (father, siblings) - Social History Smoking Status: Former smoker Frequency of Alcohol Use: None Type of Drug Use: None Exam - Constitutional Vitals: Period Temp Pulse Resp BP Sys/Camacho Pulse Ox Last 24 Hr 97.8 F-98.0 F 76-97 16-24 129-163/58-91 91-98 Results - Labs CBC & BMP: 10/05/16 09:36 10/05/16 05:45
--- NOTE | 2016-10-05 13:03 | Ultrasound Report ---
History: Bruising right leg Date: 10/05/2016 Study: Right lower extremity color-flow venous Doppler study Comparison exam: April 23, 2010 Color Doppler, wave form analysis, and compression analysis of the deep veins of the right lower extremity from the common femoral vein level through the popliteal vein level shows that the veins are readily compressible. There is no abnormal intraluminal material to suggest thrombus. Waveform analysis is unremarkable. Ultrasound images were captured and archived Impression: Normal right lower extremity color flow venous Doppler study. No evidence of acute DVT on the right PROCEDURE INTERPRETED AT [facility] DEPARTMENT OF RADIOLOGY Final Report Signed by: Dr. Tara Enrique
[2016-10-05 21:16] LABS: Hematocrit 36.5 VOL% (35.7-47.0); Hemoglobin 11.9 GM/DL (12.0-16.0)
[2016-10-06 00:19] LABS: Basophils % 0.2 % (0.0-0.8); Eosinophils # 0.3 10*3/uL (0.0-0.87); Eosinophils % 3.1 % (0.00-10.9); Hematocrit 34.7 VOL% (35.7-47.0); Hemoglobin 11.3 GM/DL (12.0-16.0); Immature Granulocytes % 0.3 %; Immature Granulocytes Absolute 0.03 #; Lymphocytes # 1.6 10*3/uL (1.4-4.0); Mean Corpuscular HGB Conc 32.6 GM/DL (32-36); Mean Corpuscular Hemoglobin 24 PG (27-34); Mean Corpuscular Volume 74.5 FL (87-102); Mean Platelet Volume 10.4 FL (9.6-12.0); Monocytes % 10.8 % (1.7-12.7); Neutrophils # 6.3 10*3/uL (1.4-7.4); Neutrophils % 68.6 % (38.7-73.9); Platelet Count 246 T/CUMM (130-400); Red Blood Count 4.66 MC/CUMM (3.8-5.5); Red Cell Distribution Width 20.3 % (9.3-17.3); White Blood Count 9.2 T/CUMM (4-12)
[2016-10-06] MEDS: ACETAMINOPHEN 325 MG TABLET PO PRN ×2 (00:31→08:14)
[2016-10-06] MEDS: SODIUM CHLORIDE 0.9% 1,000 ML IV SCH ×3 (00:31→10:09)
[2016-10-06 00:47] LABS: Calcium 7.9 MG/DL (8.5-10.1); Osmolality,Calculated 282.8 MOS/KG (273-304)
[2016-10-06] MEDS ORDERED: POTASSIUM CHLORIDE 20 MEQ TABLET PO ONE (01:48)
--- NOTE | 2016-10-06 05:59 | EKG Report ---
Stationary ECG Study [facility] Test Date: 10/05/2016 7:34:35 AM Pat Name: HANNA LEZAMA Department: Room: 235 Gender: F Office Nurse: : 1940 Requested by: John Patterson Order Number: [id number] Reading MD: PAOLO BRO Intervals [place] Rate: 70 P: 999 OR: 0 QRS: 40 QRSD: 101 T: 133 QT: 368 QTc: 389 Interpretive Statements Atrial fibrillation [facility] [employer] POSSIBLE ANTERIOR MYOCARDIAL INFARCTION, PROBABLY OLD MODERATE T-WAVE ABNORMALITY, CONSIDER LATERAL ISCHEMIA Electronically Signed On 10-06-16 07:35:46 CDT by PAOLO BRO [email or web address]
[2016-10-06] MEDS: PANTOPRAZOLE 40 MG VIAL IV SCH (08:13)
--- NOTE | 2016-10-06 10:36 | Hospitalist Progress Note ---
Assessment and Plan (1) Lower GI hemorrhage Status: Acute Assessment and plan: Patient had an episode of bloody stool at 2am today. H/H is stable Plan GI is following Current Visit: Yes (2) Abdominal pain Status: Acute Assessment and plan: CT abd/pelvic showed no acute process. This has improved Current Visit: Yes (3) Diabetes mellitus Status: Chronic Assessment and plan: HbA1c- 6.5. Continue with current regime Current Visit: No Qualifiers: Diabetes mellitus type: type 1 Diabetes mellitus complication status: with neurologic complications (4) Congestive heart failure (CHF) Status: Acute Assessment and plan: continue current regime Current Visit: Yes (5) COPD (chronic obstructive pulmonary disease) Status: Chronic Assessment and plan: Continue oxygen. Breathing treatments as needed. Current Visit: No Qualifiers: COPD type: COPD with acute lower respiratory infection Qualified Code(s): J44.0 - Chronic obstructive pulmonary disease with acute lower respiratory infection (6) Atrial fibrillation with normal ventricular rate Status: Chronic Assessment and plan: continue current regime. Xarelto on hold due to GI bleed Current Visit: No (7) Hypertension Status: Chronic Assessment and plan: resume home meds Current Visit: No Qualifiers: Hypertension type: essential hypertension Qualified Code(s): I10 - Essential (primary) hypertension (8) Dyslipidemia Status: Acute Assessment and plan: resume statins Current Visit: Yes (9) Hypokalemia Status: Acute Assessment and plan: will replete, bmp in am Current Visit: Yes Hospitalist: Subjective Interval history: patient had an episode of bloody stool around 2am today.H/H is stable. Exam - Constitutional Vitals: Period Temp Pulse Resp BP Sys/Camacho Pulse Ox Last 24 Hr 96.0 F-98.3 F 62-96 18-20 130-175/68-100 90-98 General appearance: no acute distress - Head Head exam: Present: normal inspection - Respiratory Respiratory exam: Present: clear to auscultation bilaterally - Cardiovascular Cardiovascular exam: Present: regular rate and rhythm - GI/Abdominal GI/Abdominal exam: Present: normal bowel sounds - Extremities Exam Extremities exam: Present: normal inspection - Neurological Exam Neurological exam: Present: alert, oriented X3 Results - Labs CBC & BMP: 10/06/16 00:12 10/06/16 00:12 Lab Results: I have reviewed the past 24 hour labs
[2016-10-06] MEDS ORDERED: ALBUTEROL/IPRATROPIUM 3 ML NEB RESP TX PRN (10:41)
[2016-10-06] MEDS ORDERED: ALBUTEROL 2.5 MG/3 ML NEB RESP TX PRN (11:00)
--- NOTE | 2016-10-06 11:46 | Gastrointestinal Progress Note ---
<Ana Anne - Last Filed: 10/06/16 11:43> Assessment and Plan (1) Lower GI hemorrhage Status: Acute Assessment and plan: 10/06-Decrease in rectal bleeding with stable HH in lieu of post polypectomy with C-scope on Oct 01. Xarelto on hold at present time. Continue to monitor HH. Plan and addendum to follow by Dr Travis. Current Visit: Yes Gastroenterology - PN: Subj Interval history: CC: Abd pain Pt is seen awake and alert lying in bed. States she is feeling better at this time. She states she has had a couple of small episodes of dark red blood in her stool this morning but states it is improving. She is noted to have had a polypectomy on Oct [address] Travis and restarted her Xarelto on October 02. Her last dose was on October 04. She states she did have some lower abdominal pain and cramping with the bleeding however this seems to be improved with just more report of soreness. HH is holding as well at . 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 Abdomen is soft, nontender. ROS: Denies SOB or chest pain Exam (Progress Note) - Constitutional Vitals: Period Temp Pulse Resp BP Sys/Camacho Pulse Ox Last 24 Hr 96.0 F-98.3 F 62-96 18-20 130-175/68-100 90-98 General appearance: normal weight, no acute distress - Head Head exam: Present: normal inspection, normocephalic - Eye Eye exam: Present: other (lids and conjunctiva unremarkable). Absent: scleral icterus - ENT ENT exam: Present: normal exam, normal oropharynx - Neck Neck exam: Present: normal inspection - Respiratory Respiratory exam: Present: clear to auscultation bilaterally. Absent: rales, rhonchi, wheezes - Cardiovascular Cardiovascular exam: Present: regular rate and rhythm. Absent: diastolic murmur , JVD, systolic murmur - GI/Abdominal GI/Abdominal exam: Present: normal bowel sounds, soft. Absent: ascites, distended, mass, organomegaly, tenderness - Extremities Exam Extremities exam: Present: normal inspection, full ROM - Back Exam Back exam: Present: normal inspection - Neurological Exam Neurological exam: Present: alert, oriented X3 - Psychiatric Psychiatric exam: Present: normal affect, normal mood - Skin Skin exam: Present: normal color, warm, dry Results - Labs CBC & BMP: 10/06/16 00:12 10/06/16 00:12 Lab Results: I have reviewed the past 24 hour labs <Fernando Travis - Last Filed: 10/06/16 21:14> Exam (Progress Note) - Constitutional Vitals: Period Temp Pulse Resp BP Sys/Camacho Pulse Ox Last 24 Hr 96.9 F-98.3 F 62-80 18-22 128-160/70-89 90-98 Results - Labs CBC & BMP: 10/06/16 00:12 10/06/16 00:12
[2016-10-06] MEDS: MELOXICAM 7.5 MG TABLET PO SCH (12:00)
[2016-10-06] MEDS: DILTIAZEM CD 300 MG CAPSULE PO SCH (12:01)
[2016-10-06] MEDS: LOSARTAN 50 MG TABLET PO SCH (12:01)
[2016-10-06] MEDS: DIGOXIN 0.125 MG TABLET PO SCH (12:02)
[2016-10-06] MEDS: POTASSIUM CHLORIDE 20 MEQ TABLET PO SCH ×3 (13:13→21:47)
[2016-10-06] MEDS: ACETAMINOPHEN 500 MG TABLET PO PRN (20:03)
[2016-10-06] MEDS: PRAVASTATIN 40 MG TABLET PO SCH (21:47)
[2016-10-06] MEDS: MULTIVITAMIN (OCUVITE) TABLET PO SCH (21:49)
[2016-10-07 06:36] LABS: Basophils % 0.5 % (0.0-0.8); Eosinophils # 0.4 10*3/uL (0.0-0.87); Eosinophils % 4.2 % (0.00-10.9); Hematocrit 37.8 VOL% (35.7-47.0); Hemoglobin 12.3 GM/DL (12.0-16.0); Immature Granulocytes % 0.4 %; Immature Granulocytes Absolute 0.03 #; Lymphocytes # 1.4 10*3/uL (1.4-4.0); Lymphocytes % 16.2 % (21.3-54.2); Mean Corpuscular HGB Conc 32.5 GM/DL (32-36); Mean Corpuscular Hemoglobin 24 PG (27-34); Mean Platelet Volume 10.6 FL (9.6-12.0); Monocytes % 11.7 % (1.7-12.7); Neutrophils # 5.6 10*3/uL (1.4-7.4); Platelet Count 247 T/CUMM (130-400); Red Blood Count 5.04 MC/CUMM (3.8-5.5); Red Cell Distribution Width 20.6 % (9.3-17.3); White Blood Count 8.4 T/CUMM (4-12)
[2016-10-07 07:02] LABS: Calcium 8.8 MG/DL (8.5-10.1); Osmolality,Calculated 283.7 MOS/KG (273-304); Potassium 3.6 MMOL/L (3.5-5.1)
--- NOTE | 2016-10-07 10:43 | Gastrointestinal Progress Note ---
<Ana Anne - Last Filed: 10/07/16 10:41> Assessment and Plan (1) Lower GI hemorrhage Status: Acute Assessment and plan: 10/07-no further reports of GI bleeding. H&H is stable at 12/37. Advance diet continue to monitor. Plan an addendum to follow by Dr. Travis. 10/06-Decrease in rectal bleeding with stable HH in lieu of post polypectomy with C-scope on Oct 01. Xarelto on hold at present time. Continue to monitor HH. Plan and addendum to follow by Dr Travis. Current Visit: Yes Gastroenterology - PN: Subj Interval history: CC: Lower GI bleed Patient is seen awake and alert lying in bed. States she rested well overnight. Denies any abdominal pain, nausea or vomiting. She denies any further bleeding and states that she did have a loose but normal color stool this morning. She is tolerating her diet well and wishes to advance it at this time. H&H is holding stable at /37. She is noted where she was transfused 2 units of packed red blood cells on admission. At this time we will continue to hold her blood thinner with recommendations to not restart for approximately 2- 3 weeks. Abdomen is soft, nontender. ROS: Denies shortness of breath or chest pain Exam (Progress Note) - Constitutional Vitals: Period Temp Pulse Resp BP Sys/Camacho Pulse Ox Last 24 Hr 97.3 F-98.0 F 63-80 17-26 128-157/65-100 90-96 General appearance: normal weight, no acute distress - Head Head exam: Present: normal inspection, normocephalic - Eye Eye exam: Present: other (Lids and conjunctivae are unremarkable). Absent: scleral icterus - ENT ENT exam: Present: normal exam, normal oropharynx - Neck Neck exam: Present: normal inspection - Respiratory Respiratory exam: Present: clear to auscultation bilaterally. Absent: rales, rhonchi, wheezes - Cardiovascular Cardiovascular exam: Present: regular rate and rhythm. Absent: diastolic murmur , JVD, systolic murmur - GI/Abdominal GI/Abdominal exam: Present: normal bowel sounds, soft. Absent: ascites, distended, mass, organomegaly, tenderness - Extremities Exam Extremities exam: Present: normal inspection, full ROM - Back Exam Back exam: Present: normal inspection - Neurological Exam Neurological exam: Present: alert, oriented X3 - Psychiatric Psychiatric exam: Present: normal affect, normal mood - Skin Skin exam: Present: normal color, warm, dry Results - Labs CBC & BMP: 10/07/16 05:43 10/07/16 05:43 Lab Results: I have reviewed the past 24 hour labs <Fernando Travis - Last Filed: 10/07/16 21:52> Exam (Progress Note) - Constitutional Vitals: Period Temp Pulse Resp BP Sys/Camacho Pulse Ox Last 24 Hr 97.1 F-98.4 F 60-81 17-26 136-157/79-106 90-97 Results - Labs CBC & BMP: 10/07/16 05:43 10/07/16 05:43
[2016-10-07] MEDS: MELOXICAM 7.5 MG TABLET PO SCH (10:48)
[2016-10-07] MEDS: MULTIVITAMIN (OCUVITE) TABLET PO SCH ×2 (10:49→21:39)
[2016-10-07] MEDS: METOPROLOL TARTRATE 100 MG TABLET PO SCH (10:49)
[2016-10-07] MEDS: DIGOXIN 0.125 MG TABLET PO SCH (10:49)
[2016-10-07] MEDS: POTASSIUM CHLORIDE 20 MEQ TABLET PO SCH ×4 (10:49→21:39)
[2016-10-07] MEDS: DILTIAZEM CD 300 MG CAPSULE PO SCH (10:49)
[2016-10-07] MEDS: LOSARTAN 50 MG TABLET PO SCH (10:49)
[2016-10-07] MEDS: PANTOPRAZOLE 40 MG VIAL IV SCH (10:50)
--- NOTE | 2016-10-07 11:49 | XRay Report ---
XR knee 2V RT Indication: Pain Comparison: None available Findings: No evidence of fracture seen. The alignment of the joints appears normal. Mild tricompartmental degenerative change is present. No soft tissue abnormality is seen. Impression: Mild knee osteoarthrosis. PROCEDURE INTERPRETED AT [facility] DEPARTMENT OF RADIOLOGY Final Report Signed by: Dr. Rafael Mccord
--- NOTE | 2016-10-07 14:14 | Hospitalist Progress Note ---
Assessment and Plan (1) Lower GI hemorrhage Status: Acute Assessment and plan: Patient has not had any major episode of bloody stool today. H/H is stable Plan GI is following Current Visit: Yes (2) Abdominal pain Status: Acute Assessment and plan: CT abd/pelvic showed no acute process. This has improved Current Visit: Yes (3) Diabetes mellitus Status: Chronic Assessment and plan: HbA1c- 6.5. Continue with current regime Current Visit: No Qualifiers: Diabetes mellitus type: type 1 Diabetes mellitus complication status: with neurologic complications (4) Congestive heart failure (CHF) Status: Acute Assessment and plan: continue current regime Current Visit: Yes (5) COPD (chronic obstructive pulmonary disease) Status: Chronic Assessment and plan: Continue oxygen. Breathing treatments as needed. Current Visit: No Qualifiers: COPD type: COPD with acute lower respiratory infection Qualified Code(s): J44.0 - Chronic obstructive pulmonary disease with acute lower respiratory infection (6) Atrial fibrillation with normal ventricular rate Status: Chronic Assessment and plan: continue current regime. Xarelto on hold due to GI bleed Current Visit: No (7) Hypertension Status: Chronic Assessment and plan: stable Current Visit: No Qualifiers: Hypertension type: essential hypertension Qualified Code(s): I10 - Essential (primary) hypertension (8) Dyslipidemia Status: Acute Assessment and plan: continue statins Current Visit: Yes (9) Hypokalemia Status: Acute Assessment and plan: repleted, bmp in am Current Visit: Yes (10) Swelling of right knee joint Status: Acute Assessment and plan: and pain. Xray showed Mild knee osteoarthrosis.Doppler showed No evidence of acute DVT on the right Plan PT consult pain meds Current Visit: Yes Hospitalist: Subjective Interval history: patient complains of right knee pain and swelling.She had a bowel movement this am which didnt show much blood. Exam - Constitutional Vitals: Period Temp Pulse Resp BP Sys/Camacho Pulse Ox Last 24 Hr 97.3 F-98.1 F 60-81 17-26 136-157/65-100 90-97 General appearance: no acute distress - Head Head exam: Present: normal inspection - Neck Neck exam: Present: normal inspection - Respiratory Respiratory exam: Present: clear to auscultation bilaterally - Cardiovascular Cardiovascular exam: Present: regular rate and rhythm - GI/Abdominal GI/Abdominal exam: Present: normal bowel sounds - Extremities Exam Extremities exam: Present: other (right knee tenderness and swelling) - Neurological Exam Neurological exam: Present: alert, oriented X3 Results - Labs CBC & BMP: 10/07/16 05:43 10/07/16 05:43 Lab Results: I have reviewed the past 24 hour labs
[2016-10-07] MEDS: SODIUM CHLORIDE 0.9% 1,000 ML IV SCH ×2 (16:53→16:54)
[2016-10-07] MEDS: PRAVASTATIN 40 MG TABLET PO SCH (21:39)
[2016-10-08] MEDS: ACETAMINOPHEN 500 MG TABLET PO PRN ×2 (01:02→23:08)
[2016-10-08] MEDS: SODIUM CHLORIDE 0.9% 1,000 ML IV SCH ×3 (02:55→19:27)
[2016-10-08 05:56] LABS: Basophils % 0.4 % (0.0-0.8); Eosinophils # 0.4 10*3/uL (0.0-0.87); Eosinophils % 4.9 % (0.00-10.9); Hematocrit 35.5 VOL% (35.7-47.0); Hemoglobin 11.3 GM/DL (12.0-16.0); Immature Granulocytes % 0.1 %; Immature Granulocytes Absolute 0.01 #; Lymphocytes # 1.5 10*3/uL (1.4-4.0); Lymphocytes % 18.4 % (21.3-54.2); Mean Corpuscular HGB Conc 31.8 GM/DL (32-36); Mean Corpuscular Hemoglobin 24 PG (27-34); Mean Corpuscular Volume 75.9 FL (87-102); Mean Platelet Volume 10.5 FL (9.6-12.0); Monocytes # 0.9 10*3/uL (0.11-0.8); Monocytes % 11.1 % (1.7-12.7); Neutrophils # 5.3 10*3/uL (1.4-7.4); Neutrophils % 65.1 % (38.7-73.9); Platelet Count 231 T/CUMM (130-400); Red Blood Count 4.68 MC/CUMM (3.8-5.5); Red Cell Distribution Width 20.7 % (9.3-17.3); White Blood Count 8.2 T/CUMM (4-12)
[2016-10-08 06:42] LABS: Calcium 8.5 MG/DL (8.5-10.1); Osmolality,Calculated 285.7 MOS/KG (273-304); Potassium 3.7 MMOL/L (3.5-5.1)
--- NOTE | 2016-10-08 10:06 | Gastrointestinal Progress Note ---
<Ana Anne - Last Filed: 10/08/16 10:04> Assessment and Plan (1) Lower GI hemorrhage Status: Acute Assessment and plan: 10/08-HH /35 without overt bleeding. Loose dark stools improving. Tolerating diet. For discharge home tomorrow following initiation of physical therapy. Plan and addendum to follow by DR Travis. 10/07-no further reports of GI bleeding. H&H is stable at 12/37. Advance diet continue to monitor. Plan an addendum to follow by Dr. Travis. 10/06-Decrease in rectal bleeding with stable HH in lieu of post polypectomy with C-scope on Oct 01. Xarelto on hold at present time. Continue to monitor HH. Plan and addendum to follow by Dr Travis. Current Visit: Yes Gastroenterology - PN: Subj Interval history: CC: Lower GI bleed Patient is seen awake and alert. States she had a restful night and denies any complaints. She denies any abdominal pain, nausea or vomiting, or further rectal bleeding. States that her stools are still somewhat loose and they are dark in color but no bright red blood is noted. Abdomen is soft, nontender. H& H is holding well at 35. She is noted to have had an x-ray on her knee yesterday due to complaints of pain and findings noted of mild osteoarthrosis. Dr. Beasley has decided to hold the patient another day to initiate physical therapy and discharge home tomorrow with home health therapy. ROS: Denies shortness of breath or chest pain Exam (Progress Note) - Constitutional Vitals: Period Temp Pulse Resp BP Sys/Camacho Pulse Ox Last 24 Hr 97.0 F-98.4 F 60-81 16-20 136-153/72-106 90-97 General appearance: normal weight, no acute distress - Head Head exam: Present: normal inspection, normocephalic - Eye Eye exam: Present: other (Lids and conjunctivae are unremarkable). Absent: scleral icterus - ENT ENT exam: Present: normal exam, normal oropharynx - Neck Neck exam: Present: normal inspection - Respiratory Respiratory exam: Present: clear to auscultation bilaterally. Absent: rales, rhonchi, wheezes - Cardiovascular Cardiovascular exam: Present: regular rate and rhythm. Absent: diastolic murmur , JVD, systolic murmur - GI/Abdominal GI/Abdominal exam: Present: normal bowel sounds, soft. Absent: ascites, distended, mass, organomegaly, tenderness - Extremities Exam Extremities exam: Present: normal inspection, full ROM - Back Exam Back exam: Present: normal inspection - Neurological Exam Neurological exam: Present: alert, oriented X3 - Psychiatric Psychiatric exam: Present: normal affect, normal mood - Skin Skin exam: Present: normal color, warm, dry Results - Labs CBC & BMP: 10/08/16 05:39 10/08/16 05:39 Lab Results: I have reviewed the past 24 hour labs - Diagnostic Findings Procedure: X-ray: report reviewed by ar <Fernando Travis - Last Filed: 10/08/16 22:46> Exam (Progress Note) - Constitutional Vitals: Period Temp Pulse Resp BP Sys/Camacho Pulse Ox Last 24 Hr 97.0 F-97.9 F 60-80 16-20 134-153/63-87 93-97 Results - Labs CBC & BMP: 10/08/16 05:39 10/08/16 05:39
[2016-10-08] MEDS: POTASSIUM CHLORIDE 20 MEQ TABLET PO SCH ×4 (10:21→21:18)
[2016-10-08] MEDS: DILTIAZEM CD 300 MG CAPSULE PO SCH (10:24)
[2016-10-08] MEDS: DIGOXIN 0.125 MG TABLET PO SCH (10:24)
[2016-10-08] MEDS: MULTIVITAMIN (OCUVITE) TABLET PO SCH ×2 (10:25→21:17)
[2016-10-08] MEDS: MELOXICAM 7.5 MG TABLET PO SCH (10:25)
[2016-10-08] MEDS: METOPROLOL TARTRATE 100 MG TABLET PO SCH (10:26)
[2016-10-08] MEDS: LOSARTAN 50 MG TABLET PO SCH (10:26)
[2016-10-08] MEDS: PANTOPRAZOLE 40 MG VIAL IV SCH (10:27)
--- NOTE | 2016-10-08 13:19 | Hospitalist Progress Note ---
Assessment and Plan (1) Lower GI hemorrhage Status: Acute Assessment and plan: Patient has not had any episode of bloody stool today. H/H is stable Plan To hold anticoagulant for 2weeks Hopefully dc in am Current Visit: Yes (2) Abdominal pain Status: Acute Assessment and plan: CT abd/pelvic showed no acute process. This has improved Current Visit: Yes (3) Diabetes mellitus Status: Chronic Assessment and plan: HbA1c- 6.5. Continue with current regime Current Visit: No Qualifiers: Diabetes mellitus type: type 1 Diabetes mellitus complication status: with neurologic complications (4) Congestive heart failure (CHF) Status: Acute Assessment and plan: continue current regime Current Visit: Yes (5) COPD (chronic obstructive pulmonary disease) Status: Chronic Assessment and plan: Continue oxygen. Breathing treatments as needed. Current Visit: No Qualifiers: COPD type: COPD with acute lower respiratory infection Qualified Code(s): J44.0 - Chronic obstructive pulmonary disease with acute lower respiratory infection (6) Atrial fibrillation with normal ventricular rate Status: Chronic Assessment and plan: continue current regime. Xarelto on hold due to GI bleed Current Visit: No (7) Hypertension Status: Chronic Assessment and plan: stable Current Visit: No Qualifiers: Hypertension type: essential hypertension Qualified Code(s): I10 - Essential (primary) hypertension (8) Dyslipidemia Status: Acute Assessment and plan: continue statins Current Visit: Yes (9) Hypokalemia Status: Acute Assessment and plan: repleted, bmp in am Current Visit: Yes (10) Swelling of right knee joint Status: Acute Assessment and plan: and pain. Xray showed Mild knee osteoarthrosis.Doppler showed No evidence of acute DVT on the right Plan PT consult pain meds Current Visit: Yes Hospitalist: Subjective Interval history: Patient seen. She denies further passage of loose stools.PT is evaluating her. Hopefully, she will dc in am. Exam - Constitutional Vitals: Period Temp Pulse Resp BP Sys/Camacho Pulse Ox Last 24 Hr 97.0 F-98.4 F 61-80 16-20 142-153/72-106 90-96 General appearance: no acute distress - Head Head exam: Present: normal inspection - Eye Eye exam: Present: EOMI - Respiratory Respiratory exam: Present: clear to auscultation bilaterally - Cardiovascular Cardiovascular exam: Present: regular rate and rhythm - GI/Abdominal GI/Abdominal exam: Present: normal bowel sounds - Extremities Exam Extremities exam: Present: normal inspection - Neurological Exam Neurological exam: Present: alert, oriented X3 Results - Labs CBC & BMP: 10/08/16 05:39 10/08/16 05:39 Lab Results: I have reviewed the past 24 hour labs
[2016-10-08] MEDS: PRAVASTATIN 40 MG TABLET PO SCH (21:17)
[2016-10-09 05:59] LABS: Calcium 8.6 MG/DL (8.5-10.1); Potassium 3.5 MMOL/L (3.5-5.1)
[2016-10-09 06:58] LABS: Basophils % 0.3 % (0.0-0.8); Eosinophils # 0.3 10*3/uL (0.0-0.87); Eosinophils % 2.4 % (0.00-10.9); Hematocrit 34.7 VOL% (35.7-47.0); Hemoglobin 11.4 GM/DL (12.0-16.0); Immature Granulocytes % 0.5 %; Immature Granulocytes Absolute 0.06 #; Lymphocytes # 1.2 10*3/uL (1.4-4.0); Lymphocytes % 9.3 % (21.3-54.2); Mean Corpuscular HGB Conc 32.9 GM/DL (32-36); Mean Corpuscular Hemoglobin 25 PG (27-34); Mean Corpuscular Volume 74.9 FL (87-102); Mean Platelet Volume 10.4 FL (9.6-12.0); Monocytes # 1.2 10*3/uL (0.11-0.8); Monocytes % 9.5 % (1.7-12.7); Neutrophils # 10.2 10*3/uL (1.4-7.4); Platelet Count 223 T/CUMM (130-400); Red Blood Count 4.63 MC/CUMM (3.8-5.5); Red Cell Distribution Width 20.4 % (9.3-17.3); White Blood Count 13.1 T/CUMM (4-12)
--- NOTE | 2016-10-09 07:23 | Discharge Summary ---
<Josh Srivastava - Last Filed: 10/09/16 07:15> Hospital Course - Hospital Course Hospital Course: This is a very pleasant 75-year-old female that presented to the ED at [facility] on the morning of October 05, 2016 for the evaluation of bloody diarrhea. The patient has a very extensive medical history significant for hypertension, congestive heart failure, insulin-dependent diabetes, chronic obstructive pulmonary disease, diverticulitis, atrial fibrillation, dyslipidemia , hemorrhoids, diverticulosis, anxiety, depression, chronic neck and back pain, scoliosis, and anemia. The patient has a surgical history significant for cardiac catheterization, pacemaker placement, appendectomy, cholecystectomy, colonoscopy, section, and hysterectomy. The patient reported the onset of symptoms on the morning of presentation. She reported that she felt nauseated and felt the urge to defecate. She presented to the bathroom and noticed that she had a large amount of bloody stools which were loose. In addition, she only reported one episode however confirmed diffuse lower abdominal pain. She also reported an episode of lightheadedness, shortness of breath, nausea without vomiting, diffuse abdominal pain, decreased appetite, and right lower extremity edema. She became alarmed and presented to the ED for further evaluation. Incidentally, the patient recently underwent colonoscopy on the Thursday prior to presentation under the direction of Dr. Fernando Travis. She reported that the colonoscopy was significant for polyps and evidence of diverticulosis. Labs were obtained at the time of ED presentation which were significant for white blood cell count of 14, hemoglobin 10.5, hematocrit 32.6, BUN 13, creatinine 0.50, and hemoglobin A1c at 6.5. The patient was subsequently admitted to the hospitalist service, a gastroenterology consultation was requested. The patient was seen and evaluated by gastroenterology and recommendations were given. The patient experienced no additional episodes of bloody diarrhea. The patient was also advised to hold anticoagulation agents for the next 2-3 weeks. The patient's hemoglobin and hematocrit remained stable. She required no transfusion of blood products during the clinical encounter. She complained of a right knee swelling, Xray showed Mild knee osteoarthrosis.Doppler showed No evidence of acute DVT on the right.PT was started and she was given some pain meds. The patient's condition gradually improved. The patient's condition is stable. Her H/H and vitals remained stable. She has not experienced any significant overnight events. Today, we feel that she is indeed appropriate for discharge to follow-up with her primary care physician in 1week and maintenance worker municipal as indicated. Discharge Plan - Discharge Data Disposition: Home Health Service - Discharge Medications Continue Pravastatin [Pravachol] 40 mg PO BEDTIME Furosemide Tab [Lasix Tab] 40 mg PO DAILY Pantoprazole Tab [Protonix Tab] 40 mg PO DAILY Digoxin Tab [Lanoxin Tab] 0.25 mg PO DAILY Insulin Detemir [Levemir] 35 unit SUBCUT BEDTIME Albuterol Sulfate [Ventolin HFA] 2 puff INH Q6H PRN PRN Reason: Shortness Of Breath/Wheezing Metoprolol Tartrate Tab [Lopressor Tab] 100 mg PO DAILY dilTIAZem HCl [Cartia XT] 300 mg PO DAILY Potassium Chloride [Klor-Con M20] 20 meq PO QID Meloxicam [Mobic] 15 mg PO DAILY Albuterol/Ipratropium Neb [Duoneb] 3 ml RESP TX RT Q6H PRN PRN Reason: Shortness Of Breath Vit C/Vit E AC/Lut/Copper/Zinc [Preservision Lutein Softgel] 1 each PO BID Losartan [Cozaar] 50 mg PO DAILY Acetaminophen Tab [Tylenol Tab] 500 mg PO Q4H PRN PRN Reason: Pain Discontinued Rivaroxaban [Xarelto] 20 mg PO DAILY Azithromycin [Azithromycin Z Pack] 250 mg PO DIRECTED - Follow Up or Referral - Forms/Instructions Instructions: Gastrointestinal Bleeding (DC) Exam - Constitutional Vitals: Period Temp Pulse Resp BP Sys/Camacho Pulse Ox Last 24 Hr 97.2 F-98.2 F 60-87 16-23 134-153/63-82 92-99 Discharge Results Procedures and tests throughout hospitalization: Pending Orders 10/05/16 08:14 Occult Blood, Stool Stat 10/05/16 09:36 Blood Culture Stat Labs on day of discharge: Labs from last 24 hours 10/09/16 10/09/16 10/09/16 07:12 06:43 05:13 WBC 13.1 H D RBC 4.63 Hgb 11.4 L Hct 34.7 L MCV 74.9 L MCH 25 L MCHC 32.9 RDW 20.4 H Plt Count 223 MPV 10.4 Neut % (Auto) 78.0 H Lymph % (Auto) 9.3 L Reeves % (Auto) 9.5 Eos % (Auto) 2.4 Baso % (Auto) 0.3 Neut # (Auto) 10.2 H Lymph # (Auto) 1.2 L Reeves # (Auto) 1.2 H Eos # (Auto) 0.3 Baso # (Auto) 0.0 Immature Gran % 0.5 Nucleated RBC % 0.0 Immature Gran # 0.06 Nucleated RBCs # 0.00 Immature Plt Fraction 0.0 Sodium 143 Potassium 3.5 Chloride 112 H Carbon Dioxide 21 Anion Gap 13.5 BUN 7 Creatinine 0.40 L GFR Calculation 99 BUN/Creatinine Ratio 17.00 Glucose 86 POC Glucose 93 Calculated Osmolality 281.0 Calcium 8.6 10/08/16 10/08/16 10/08/16 21:33 16:08 12:35 WBC RBC Hgb Hct MCV MCH MCHC RDW Plt Count MPV Neut % (Auto) Lymph % (Auto) Reeves % (Auto) Eos % (Auto) Baso % (Auto) Neut # (Auto) Lymph # (Auto) Reeves # (Auto) Eos # (Auto) Baso # (Auto) Immature Gran % Nucleated RBC % Immature Gran # Nucleated RBCs # Immature Plt Fraction Sodium Potassium Chloride Carbon Dioxide Anion Gap BUN Creatinine GFR Calculation BUN/Creatinine Ratio Glucose POC Glucose 122 H 156 H 97 Calculated Osmolality Calcium Preliminary micro results at discharge 10/05/16 09:36 Blood Culture - Preliminary Blood No growth at 3 days 10/05/16 09:36 Blood Culture - Preliminary Blood No growth at 3 days DS: Provider Date of admission: 10/08/16 10:39 Primary care physician: Phil Bonner MD Attending physician on admission: Lisa Cordova MD Consults: 10/05/16 08:14 Consult to Physician [CONS] Routine Comment: GI bleed, recent c-scope Consulting Provider: Teddy Enrique Person Notified: Dr Watkins Date Notified: 10/05/16 Time Notified: 10:30 Consult Notification Comment: will see today notified [facility] office on Thursday10/07/16 14:16 Consult to Physical Therapy [CONS] Routine Reason for Physical Therapy: Evaluate and Treat 10/08/16 10:18 Consult to Case Mgmt/Social Srvs [CONS] Routine Reason for Case Mgmt/Social Srvs: Home Health Consult Comment: Needs home health at discharge 10/09/16 08:41 Consult to Case Mgmt/Social Srvs [CONS] Routine Reason for Case Mgmt/Social Srvs: Discharge Planning Consult Comment: Home health with physical therapy at discharge today Discharging clinician: Josh Srivastava CNP <Lisa Cordova - Last Filed: 10/09/16 10:06> Hospital Course - Time spent with patient Time with patient DS: Greater than 30 minutes (Greater than 30mins) Diagnosis - Discharge Diagnosis (1) Lower GI hemorrhage Status: Acute (2) Abdominal pain Status: Acute (3) Diabetes mellitus Status: Chronic (4) Congestive heart failure (CHF) Status: Acute (5) COPD (chronic obstructive pulmonary disease) Status: Chronic (6) Atrial fibrillation with normal ventricular rate Status: Chronic (7) Hypertension Status: Chronic (8) Dyslipidemia Status: Acute (9) Hypokalemia Status: Acute (10) Swelling of right knee joint Status: Acute Discharge Plan - Discharge Data Condition at Discharge: Stable Discharge Diet: diabetic diet Activity: resume usual activities as tolerated - Forms/Instructions Additional Discharge Instructions: Follow PCP in 1week, GI as scheduled Exam - Constitutional General appearance: no acute distress - Head Head exam: Present: normal inspection - Respiratory Respiratory exam: Present: clear to auscultation bilaterally - Cardiovascular Cardiovascular exam: Present: regular rate and rhythm - GI/Abdominal GI/Abdominal exam: Present: normal bowel sounds - Extremities Exam Extremities exam: Present: normal inspection - Neurological Exam Neurological exam: Present: alert, oriented X3
[2016-10-09 07:39] VITALS: BP 141/69
[2016-10-09] MEDS: DIGOXIN 0.125 MG TABLET PO SCH (09:23)
[2016-10-09] MEDS: MULTIVITAMIN (OCUVITE) TABLET PO SCH (09:25)
[2016-10-09] MEDS: POTASSIUM CHLORIDE 20 MEQ TABLET PO SCH (09:25)
[2016-10-09] MEDS: METOPROLOL TARTRATE 100 MG TABLET PO SCH (09:25)
[2016-10-09] MEDS: MELOXICAM 7.5 MG TABLET PO SCH (09:25)
[2016-10-09] MEDS: DILTIAZEM CD 300 MG CAPSULE PO SCH (09:25)
[2016-10-09] MEDS: LOSARTAN 50 MG TABLET PO SCH (09:25)
[2016-10-09] MEDS: PANTOPRAZOLE 40 MG VIAL IV SCH (09:26)
--- NOTE | 2016-10-09 13:13 | Physician Query Form ---
CLICK EDIT DOCUMENT TO SELECT QUERY ANSWER --> OK --> SIGN Reba Mireles RN Clinical Bulk Mail Clerk W) [phone] (f) [phone] [email or web address] PROVIDERS: Make your selection(s) from the choices in EACH section by typing an "x" and enter comments in the comment section. Please use your independent medical judgment in providing your response. This request does not imply that any particular answer is desired or expected. CLINICAL INDICATORS: (Providers should not edit this section) Based on documentation of "history of CHF", Echo done 01/22/16 showed "Left ventricle is normal size with overall normal systolic function ejection fraction 55+ %". Pt. treated with Lasix as home medication. Please provide further specificity regarding CHF. TYPE: ( ) Systolic (HFrEF - heart failure with reduced systolic function/EF) ( ) Diastolic (HFpEF - heart failure with preserved systolic function/EF) ( ) Combined Systolic/Diastolic ( ) Other, please specify: (X ) Clinically unable to determine ( ) Past Medical History of Systolic CHF ( ) Past Medical History of Diastolic CHF ( ) Clinically unable to determine COMMENTS: PLEASE ALSO DOCUMENT RESPONSE IN PROGRESS NOTES AND/OR DISCHARGE SUMMARY Use of terms such as suspected, likely, or probable (associated with a specific diagnosis that is being evaluated, monitored, or treated as if it exists) are acceptable and can be restated in the discharge summary if not ruled out. MTDD
--- NOTE | 2016-10-13 14:19 | Physician Query Form ---
CLICK EDIT DOCUMENT TO SELECT QUERY ANSWER --> OK --> SIGN Reba Mireles RN Clinical Supervisor [employer] W) [phone] (f) [phone] [email or web address] PROVIDERS: Make your selection(s) from the choices in EACH section by typing an "x" and enter comments in the comment section. Please use your independent medical judgment in providing your response. This request does not imply that any particular answer is desired or expected. CLINICAL INDICATORS: (Providers should not edit this section) Pt. admitted with lower GI bleed. Based on documentation of "Most likely secondary to delayed post-polypectomy bleed from October 01, 2016. Complicated by patient's use of Xarelto for atrial fibrillation.I anticipate that the bleeding will stop on its own as Xarelto becomes ineffective, and polypectomy sites continue to heal". "The patient was also advised to hold anticoagulation agents for the next 2-3 weeks". Based on the above, could you clarify the appropriate diagnosis, if significant , that supports the above abnormalities and additional evaluation, monitoring, and/or treatment rendered: ( ) GI bleed due to anticoagulant use ( ) GI bleed due to recent polypectomy (x ) GI bleed due to both anticoagulant use and recent polypectomy ( ) Other, please specify: ( ) Clinically unable to determine COMMENTS: PLEASE ALSO DOCUMENT RESPONSE IN PROGRESS NOTES AND/OR DISCHARGE SUMMARY Use of terms such as suspected, likely, or probable (associated with a specific diagnosis that is being evaluated, monitored, or treated as if it exists) are acceptable and can be restated in the discharge summary if not ruled out. MTDD
== END 2016-10-09 11:16 | disposition home health service (06) | DRG 813 ==
LOC: EDBD → EDUNIT# → N.EDINP 04:42 → N.ED 04:42 → N.2E 08:55
PROVIDERS: ADMIT Internal Medicine; ATTEND Internal Medicine

== ENCOUNTER 2017-09-04 10:21 | Inpatient (IN) ==
[2017-09-08 11:47] VITALS: BP 158/66
== END 2017-09-08 13:55 | disposition home health service (06) | DRG 605 ==
LOC: N.ED 10:21 → SUATTDRO 12:35 → N.EDINP 12:35 → N.2E 14:27
PROVIDERS: ADMIT Internal Medicine; ATTEND Family Medicine

== ENCOUNTER 2018-11-09 09:44 | Observation (INO) ==
[2018-11-09 10:44] LABS: Basophils % 0.3 % (0.0-0.8); Eosinophils # 0.1 10*3/uL (0.0-0.87); Eosinophils % 1.5 % (0.00-10.9); Hematocrit 46.5 VOL% (35.7-47.0); Hemoglobin 14.3 GM/DL (12.0-16.0); Immature Granulocytes % 0.2 %; Immature Granulocytes Absolute 0.02 #; Lymphocytes # 1.4 10*3/uL (1.4-4.0); Lymphocytes % 15.1 % (21.3-54.2); Mean Corpuscular HGB Conc 30.8 GM/DL (32-36); Mean Platelet Volume 11.1 FL (9.6-12.0); Monocytes % 9.6 % (1.7-12.7); Neutrophils % 73.3 % (38.7-73.9); Platelet Count 271 T/CUMM (130-400); Red Blood Count 5.81 MC/CUMM (3.8-5.5); Red Cell Distribution Width 17.7 % (9.3-17.3); White Blood Count 9.6 T/CUMM (4-12)
[2018-11-09 10:58] LABS: Alanine Aminotransferase 15 U/L (13-56); Albumin 3.9 G/DL (3.4-5.0); Alkaline Phosphatase 111 U/L (45-117); Aspartate Amino Transferase 20 U/L (0-37); Blood Urea Nitrogen 15 MG/DL (7-18); Calcium 9.3 MG/DL (8.5-10.1); Glucose 86 MG/DL (74-106); Total Protein 7.9 G/DL (6.4-8.3); Troponin I < 0.015 NG/ML (0.00-0.045)
[2018-11-09 11:02] LABS: Free T4 (Free Thyroxine) 1.16 NG/DL (0.76-1.46); Thyroid Stimulating Hormone 1.22 uIU/ml (0.358-3.74)
[2018-11-09 11:03] LABS: INR 1.1; PT Patient Result 11.4 SECS (9.6-12.2)
[2018-11-09] MEDS ORDERED: AZITHROMYCIN INJ 500 MG in SODIUM CHLORIDE 0.9% 250 ML IV STA (11:55)
[2018-11-09] MEDS ORDERED: GLUCAGON 1 MG VIAL IM PRN (13:41)
[2018-11-09] MEDS ORDERED: ONDANSETRON 4 MG/2 ML VIAL IV PRN (13:41)
[2018-11-09] MEDS ORDERED: DEXTROSE 50% 25 GM/50 ML VIAL IV PRN (13:41)
[2018-11-09] MEDS ORDERED: LACTULOSE 20 GM/30 ML UDCUP PO PRN (13:41)
[2018-11-09] MEDS ORDERED: ENOXAPARIN 40 MG/0.4 ML SYRINGE SUBCUT SCH (14:00)
[2018-11-09 14:10] LABS: Risk Ratio 2.38
[2018-11-09] MEDS ORDERED: ALBUTEROL 2.5 MG/3 ML NEB RESP TX PRN ×2 (15:31→19:00)
[2018-11-09] MEDS: INSULIN REGULAR 100 UNIT/ML SUBCUT SCH ×2 (16:34→21:15)
[2018-11-09] MEDS: AZITHROMYCIN INJ 500 MG in SODIUM CHLORIDE 0.9% 250 ML IV SCH (17:10)
[2018-11-09] MEDS: POTASSIUM CHLORIDE 20 MEQ TABLET PO SCH ×2 (17:11→21:14)
[2018-11-09 18:59] LABS: Apearance,Urine CLEAR (Clear); Bacteria,Urine Many /HPF (Few); Bilirubin,Urine Negative (Negative); Blood, Urine Negative (Negative); Glucose,Urine (UA) Negative (Negative); Ketones,Urine 20 mg/dL (Negative); Mucus,Urine Occasional /LPF (Occasional); Nitrite,Urine Positive (Negative); Protein,Urine 100 MG/DL; RBC,Urine 2 /HPF (0-4); Squamous Epithelial Cell,Urine Occasional /HPF (0-10); Urine Color Yellow (Yellow); Urine Specific Gravity 1.013 (1.001-1.035); Urine Urobilinogen < 2.0 EU/DL (0.2-1.0); WBC,Urine 41 /HPF (0-6)
[2018-11-09] MEDS: ALBUTEROL/IPRATROPIUM 3 ML NEB RESP TX SCH (19:51)
[2018-11-09] MEDS ORDERED: FUROSEMIDE 40 MG TABLET PO SCH (21:00)
[2018-11-09] MEDS: INSULIN GLARGINE 100 UNIT/ML SUBCUT SCH (21:13)
[2018-11-09] MEDS: SIMVASTATIN 20 MG TABLET PO SCH (21:14)
[2018-11-09] MEDS: DILTIAZEM CD 300 MG CAPSULE PO SCH (21:14)
[2018-11-10] MEDS: ALBUTEROL/IPRATROPIUM 3 ML NEB RESP TX SCH ×4 (00:10→20:02)
[2018-11-10 05:31] LABS: Basophils % 0.4 % (0.0-0.8); Eosinophils # 0.2 10*3/uL (0.0-0.87); Eosinophils % 2.2 % (0.00-10.9); Hematocrit 40.6 VOL% (35.7-47.0); Hemoglobin 12.5 GM/DL (12.0-16.0); Immature Granulocytes % 0.4 %; Immature Granulocytes Absolute 0.03 #; Lymphocytes # 1.7 10*3/uL (1.4-4.0); Lymphocytes % 21.2 % (21.3-54.2); Mean Corpuscular HGB Conc 30.8 GM/DL (32-36); Mean Corpuscular Volume 80.9 FL (87-102); Mean Platelet Volume 10.5 FL (9.6-12.0); Monocytes % 11.7 % (1.7-12.7); Neutrophils % 64.1 % (38.7-73.9); Platelet Count 231 T/CUMM (130-400); Red Blood Count 5.02 MC/CUMM (3.8-5.5); White Blood Count 7.8 T/CUMM (4-12)
[2018-11-10 05:59] LABS: Calcium 8.6 MG/DL (8.5-10.1); Osmolality,Calculated 283.8 MOS/KG (273-304)
[2018-11-10] MEDS ORDERED: ALUM/MAG/SIMETH/LIDO VISC 1:1 30 ML BOTTLE PO ONE (09:23)
[2018-11-10] MEDS: FUROSEMIDE 40 MG TABLET PO SCH ×2 (09:25→16:30)
[2018-11-10] MEDS: RIVAROXABAN 20 MG TABLET PO SCH (09:29)
[2018-11-10] MEDS: METOPROLOL TARTRATE 100 MG TABLET PO SCH (09:29)
[2018-11-10] MEDS: POTASSIUM CHLORIDE 20 MEQ TABLET PO SCH ×4 (09:29→22:18)
[2018-11-10] MEDS: PANTOPRAZOLE 40 MG TABLET PO SCH (09:30)
[2018-11-10] MEDS: LOSARTAN 50 MG TABLET PO SCH (09:31)
[2018-11-10 09:41] LABS: Basophils % 0.3 % (0.0-0.8); Eosinophils # 0.1 10*3/uL (0.0-0.87); Eosinophils % 1.2 % (0.00-10.9); Hematocrit 41.7 VOL% (35.7-47.0); Hemoglobin 12.9 GM/DL (12.0-16.0); Immature Granulocytes % 0.3 %; Immature Granulocytes Absolute 0.02 #; Lymphocytes # 1.1 10*3/uL (1.4-4.0); Lymphocytes % 14.2 % (21.3-54.2); Mean Corpuscular HGB Conc 30.9 GM/DL (32-36); Mean Corpuscular Volume 80.3 FL (87-102); Mean Platelet Volume 10.2 FL (9.6-12.0); Monocytes % 9.9 % (1.7-12.7); Neutrophils % 74.1 % (38.7-73.9); Platelet Count 231 T/CUMM (130-400); Red Blood Count 5.19 MC/CUMM (3.8-5.5); White Blood Count 7.8 T/CUMM (4-12)
[2018-11-10] MEDS: INSULIN REGULAR 100 UNIT/ML SUBCUT SCH ×4 (11:24→22:20)
[2018-11-10] MEDS: cefTRIAXone 1,000 MG in SYRINGE 1 EACH IV SCH (13:00)
[2018-11-10] MEDS: FERROUS SULFATE 325 MG TABLET PO SCH (13:01)
[2018-11-10] MEDS: DIGOXIN 0.125 MG TABLET PO SCH (13:01)
[2018-11-10] MEDS: ACETAMINOPHEN 325 MG TABLET PO PRN (13:12)
[2018-11-10] MEDS: AZITHROMYCIN INJ 500 MG in SODIUM CHLORIDE 0.9% 250 ML IV SCH (16:31)
[2018-11-10] MEDS: DILTIAZEM CD 300 MG CAPSULE PO SCH (22:17)
[2018-11-10] MEDS: SIMVASTATIN 20 MG TABLET PO SCH (22:17)
[2018-11-10] MEDS: INSULIN GLARGINE 100 UNIT/ML SUBCUT SCH (22:18)
[2018-11-11] MEDS: ALBUTEROL/IPRATROPIUM 3 ML NEB RESP TX SCH ×6 (00:41→23:16)
[2018-11-11 06:28] LABS: Basophils % 0.2 % (0.0-0.8); Eosinophils # 0.3 10*3/uL (0.0-0.87); Eosinophils % 2.8 % (0.00-10.9); Hematocrit 39.3 VOL% (35.7-47.0); Immature Granulocytes % 0.3 %; Immature Granulocytes Absolute 0.03 #; Lymphocytes # 1.5 10*3/uL (1.4-4.0); Lymphocytes % 16.5 % (21.3-54.2); Mean Corpuscular HGB Conc 30.5 GM/DL (32-36); Mean Corpuscular Volume 81.7 FL (87-102); Mean Platelet Volume 10.9 FL (9.6-12.0); Monocytes % 11.8 % (1.7-12.7); Neutrophils % 68.4 % (38.7-73.9); Platelet Count 225 T/CUMM (130-400); Red Blood Count 4.81 MC/CUMM (3.8-5.5); Red Cell Distribution Width 17.2 % (9.3-17.3); White Blood Count 8.8 T/CUMM (4-12)
[2018-11-11 06:51] LABS: Calcium 8.4 MG/DL (8.5-10.1)
[2018-11-11] MEDS: INSULIN REGULAR 100 UNIT/ML SUBCUT SCH ×4 (09:06→22:06)
[2018-11-11] MEDS: FUROSEMIDE 40 MG TABLET PO SCH ×2 (09:18→16:35)
[2018-11-11] MEDS: LOSARTAN 50 MG TABLET PO SCH (09:18)
[2018-11-11] MEDS: FERROUS SULFATE 325 MG TABLET PO SCH (09:18)
[2018-11-11] MEDS: POTASSIUM CHLORIDE 20 MEQ TABLET PO SCH ×4 (09:19→21:53)
[2018-11-11] MEDS: PANTOPRAZOLE 40 MG TABLET PO SCH (09:20)
[2018-11-11] MEDS: RIVAROXABAN 20 MG TABLET PO SCH (09:20)
[2018-11-11] MEDS: METOPROLOL TARTRATE 100 MG TABLET PO SCH (09:20)
[2018-11-11] MEDS: cefTRIAXone 1,000 MG in SYRINGE 1 EACH IV SCH (09:26)
[2018-11-11] MEDS: AZITHROMYCIN 250 MG TABLET PO SCH (09:26)
[2018-11-11] MEDS: DIGOXIN 0.125 MG TABLET PO SCH (13:10)
[2018-11-11] MEDS ORDERED: ALUMINUM/MAGNES/SIMETH MAX STR 30 ML UDCUP PO PRN (21:09)
[2018-11-11] MEDS: SIMVASTATIN 20 MG TABLET PO SCH (21:53)
[2018-11-11] MEDS: DILTIAZEM CD 300 MG CAPSULE PO SCH (21:53)
[2018-11-11] MEDS: INSULIN GLARGINE 100 UNIT/ML SUBCUT SCH (22:05)
[2018-11-12] MEDS: ALBUTEROL/IPRATROPIUM 3 ML NEB RESP TX SCH ×6 (02:43→23:27)
[2018-11-12 06:28] LABS: Basophils % 0.3 % (0.0-0.8); Eosinophils # 0.3 10*3/uL (0.0-0.87); Eosinophils % 2.7 % (0.00-10.9); Hematocrit 38.4 VOL% (35.7-47.0); Hemoglobin 11.7 GM/DL (12.0-16.0); Immature Granulocytes % 0.3 %; Immature Granulocytes Absolute 0.03 #; Lymphocytes # 1.5 10*3/uL (1.4-4.0); Mean Corpuscular HGB Conc 30.5 GM/DL (32-36); Mean Corpuscular Volume 81.4 FL (87-102); Mean Platelet Volume 10.8 FL (9.6-12.0); Monocytes % 10.2 % (1.7-12.7); Neutrophils % 72.5 % (38.7-73.9); Platelet Count 223 T/CUMM (130-400); Red Blood Count 4.72 MC/CUMM (3.8-5.5); Red Cell Distribution Width 17.2 % (9.3-17.3); White Blood Count 10.4 T/CUMM (4-12)
[2018-11-12 06:42] LABS: Calcium 8.7 MG/DL (8.5-10.1); Osmolality,Calculated 286.8 MOS/KG (273-304)
[2018-11-12] MEDS: INSULIN REGULAR 100 UNIT/ML SUBCUT SCH ×4 (08:31→20:41)
[2018-11-12] MEDS: FUROSEMIDE 40 MG TABLET PO SCH ×2 (08:58→16:51)
[2018-11-12] MEDS: RIVAROXABAN 20 MG TABLET PO SCH (08:58)
[2018-11-12] MEDS: PANTOPRAZOLE 40 MG TABLET PO SCH (08:58)
[2018-11-12] MEDS: AZITHROMYCIN 250 MG TABLET PO SCH (08:58)
[2018-11-12] MEDS: LOSARTAN 50 MG TABLET PO SCH (08:58)
[2018-11-12] MEDS: FERROUS SULFATE 325 MG TABLET PO SCH (08:58)
[2018-11-12] MEDS: METOPROLOL TARTRATE 100 MG TABLET PO SCH (08:59)
[2018-11-12] MEDS: POTASSIUM CHLORIDE 20 MEQ TABLET PO SCH ×4 (08:59→20:39)
[2018-11-12] MEDS: cefTRIAXone 1,000 MG in SYRINGE 1 EACH IV SCH (08:59)
[2018-11-12] MEDS: ACETAMINOPHEN 325 MG TABLET PO PRN (09:06)
[2018-11-12] MEDS: DIGOXIN 0.125 MG TABLET PO SCH (12:09)
[2018-11-12] MEDS: CETIRIZINE 10 MG TABLET PO SCH (16:50)
[2018-11-12] MEDS: INSULIN GLARGINE 100 UNIT/ML SUBCUT SCH (20:36)
[2018-11-12] MEDS: DILTIAZEM CD 300 MG CAPSULE PO SCH (20:38)
[2018-11-12] MEDS: SIMVASTATIN 20 MG TABLET PO SCH (20:39)
[2018-11-13] MEDS: ALBUTEROL/IPRATROPIUM 3 ML NEB RESP TX SCH ×2 (02:02→07:41)
[2018-11-13] MEDS: INSULIN REGULAR 100 UNIT/ML SUBCUT SCH (07:50)
[2018-11-13 08:15] VITALS: BP 146/61
[2018-11-13] MEDS: LOSARTAN 50 MG TABLET PO SCH (08:40)
[2018-11-13] MEDS: FUROSEMIDE 40 MG TABLET PO SCH (08:41)
[2018-11-13] MEDS: CETIRIZINE 10 MG TABLET PO SCH (08:41)
[2018-11-13] MEDS: POTASSIUM CHLORIDE 20 MEQ TABLET PO SCH (08:41)
[2018-11-13] MEDS: METOPROLOL TARTRATE 100 MG TABLET PO SCH (08:41)
[2018-11-13] MEDS: RIVAROXABAN 20 MG TABLET PO SCH (08:41)
[2018-11-13] MEDS: FERROUS SULFATE 325 MG TABLET PO SCH (08:41)
[2018-11-13] MEDS: AZITHROMYCIN 250 MG TABLET PO SCH (08:41)
[2018-11-13] MEDS: PANTOPRAZOLE 40 MG TABLET PO SCH (08:41)
[2018-11-13] MEDS: cefTRIAXone 1,000 MG in SYRINGE 1 EACH IV SCH (08:42)
== END 2018-11-13 09:28 | disposition home or self-care (01) ==
LOC: EDUNIT# → EDBD → N.ED 09:44 → N.EDINP 09:44 → N.5E 14:44
PROVIDERS: ADMIT Internal Medicine; ATTEND Internal Medicine

== ENCOUNTER 2018-12-14 03:59 | Observation (INO) ==
[2018-12-14] MEDS ORDERED: ASPIRIN 325 MG TABLET PO STA (04:27)
[2018-12-14] MEDS ORDERED: MORPHINE 4 MG/1 ML VIAL IV STA (04:27)
[2018-12-14] MEDS ORDERED: ONDANSETRON 4 MG/2 ML VIAL IV STA (04:27)
[2018-12-14] MEDS ORDERED: ALUM/MAG/SIMETH/LIDO VISC 1:1 30 ML BOTTLE PO STA (04:27)
[2018-12-14] MEDS ORDERED: hydrALAZINE 20 MG/1 ML VIAL IV STA (04:28)
[2018-12-14 04:43] LABS: Basophils # 0.1 10*3/uL (0.0-0.2); Basophils % 0.4 % (0.0-0.8); Eosinophils # 0.2 10*3/uL (0.0-0.87); Eosinophils % 1.9 % (0.00-10.9); Hemoglobin 13.1 GM/DL (12.0-16.0); Immature Granulocytes % 0.5 %; Immature Granulocytes Absolute 0.06 #; Lymphocytes # 2.5 10*3/uL (1.4-4.0); Lymphocytes % 19.3 % (21.3-54.2); Mean Corpuscular HGB Conc 31.2 GM/DL (32-36); Mean Corpuscular Volume 80.9 FL (87-102); Mean Platelet Volume 10.7 FL (9.6-12.0); Monocytes % 10.5 % (1.7-12.7); Neutrophils % 67.4 % (38.7-73.9); Platelet Count 272 T/CUMM (130-400); Red Blood Count 5.19 MC/CUMM (3.8-5.5); Red Cell Distribution Width 15.8 % (9.3-17.3); White Blood Count 12.9 T/CUMM (4-12)
[2018-12-14 04:51] LABS: INR 1.1
[2018-12-14 05:02] LABS: Albumin 3.5 G/DL (3.4-5.0); Bilirubin,Total 0.4 MG/DL (0.2-1.0); Calcium 8.7 MG/DL (8.5-10.1); Osmolality,Calculated 283.8 MOS/KG (273-304)
[2018-12-14] MEDS ORDERED: [UNRECOGNIZED DRUG - OTHER] PO PRN (10:06)
[2018-12-14] MEDS ORDERED: ALBUTEROL 2.5 MG/3 ML NEB RESP TX PRN (10:06)
[2018-12-14] MEDS ORDERED: ALBUTEROL/IPRATROPIUM 3 ML NEB RESP TX PRN (10:06)
[2018-12-14 14:07] LABS: Troponin I < 0.015 NG/ML (0.00-0.045)
[2018-12-14] MEDS ORDERED: hydrALAZINE 20 MG/1 ML VIAL IV PRN (14:15)
[2018-12-14] MEDS ORDERED: NITROGLYCERIN SL 0.4 MG TABLET SL PRN (14:15)
[2018-12-14] MEDS: CYCLOBENZAPRINE 10 MG TABLET PO SCH ×2 (15:34→21:01)
[2018-12-14] MEDS: METOPROLOL TARTRATE 100 MG TABLET PO SCH (15:34)
[2018-12-14 18:36] LABS: Troponin I < 0.015 NG/ML (0.00-0.045)
[2018-12-14 18:52] LABS: Apearance,Urine CLEAR (Clear); Bilirubin,Urine Negative (Negative); Blood, Urine Negative (Negative); Glucose,Urine (UA) Negative (Negative); Ketones,Urine Negative (Negative); Mucus,Urine Few /LPF (Occasional); Nitrite,Urine Negative (Negative); Protein,Urine 30 MG/DL; RBC,Urine 1 /HPF (0-4); Squamous Epithelial Cell,Urine Occasional /HPF (0-10); Urine Color Yellow (Yellow); Urine Urobilinogen < 2.0 EU/DL (0.2-1.0); WBC,Urine 10 /HPF (0-6)
[2018-12-14] MEDS ORDERED: DILTIAZEM CD 300 MG CAPSULE PO SCH (19:00)
[2018-12-14] MEDS ORDERED: INSULIN GLARGINE 100 UNIT/ML SUBCUT SCH (19:00)
[2018-12-14] MEDS ORDERED: SIMVASTATIN 20 MG TABLET PO SCH (21:00)
[2018-12-15 06:13] LABS: Basophils % 0.2 % (0.0-0.8); Eosinophils # 0.3 10*3/uL (0.0-0.87); Eosinophils % 2.4 % (0.00-10.9); Hematocrit 40.9 VOL% (35.7-47.0); Hemoglobin 12.4 GM/DL (12.0-16.0); Immature Granulocytes % 0.3 %; Immature Granulocytes Absolute 0.03 #; Lymphocytes # 2.1 10*3/uL (1.4-4.0); Lymphocytes % 19.8 % (21.3-54.2); Mean Corpuscular HGB Conc 30.3 GM/DL (32-36); Mean Corpuscular Volume 82.1 FL (87-102); Monocytes % 10.5 % (1.7-12.7); Neutrophils % 66.8 % (38.7-73.9); Platelet Count 276 T/CUMM (130-400); Red Blood Count 4.98 MC/CUMM (3.8-5.5); Red Cell Distribution Width 16.1 % (9.3-17.3); White Blood Count 10.5 T/CUMM (4-12)
[2018-12-15 06:44] LABS: Bilirubin,Total 1.1 MG/DL (0.2-1.0); Calcium 8.5 MG/DL (8.5-10.1); Osmolality,Calculated 285.8 MOS/KG (273-304); Total Protein 6.3 G/DL (6.4-8.3)
[2018-12-15] MEDS ORDERED: RIVAROXABAN 20 MG TABLET PO SCH (08:00)
[2018-12-15] MEDS ORDERED: REGADENOSON 0.4 MG/5 ML SYRINGE IV ONE (08:51)
[2018-12-15] MEDS ORDERED: PANTOPRAZOLE 40 MG TABLET PO SCH (09:00)
[2018-12-15] MEDS ORDERED: LOSARTAN 50 MG TABLET PO SCH (09:00)
[2018-12-15] MEDS ORDERED: CETIRIZINE 10 MG TABLET PO SCH (09:00)
[2018-12-15] MEDS ORDERED: DIGOXIN 0.125 MG TABLET PO SCH (09:00)
[2018-12-15] MEDS ORDERED: FERROUS SULFATE 325 MG TABLET PO SCH (09:00)
[2018-12-15] MEDS: METOPROLOL TARTRATE 100 MG TABLET PO SCH (11:34)
[2018-12-15] MEDS: CYCLOBENZAPRINE 10 MG TABLET PO SCH (11:34)
[2018-12-15 12:08] VITALS: BP 140/67
== END 2018-12-15 15:40 ==
LOC: EDBD → EDUNIT# → N.ED 03:59 → N.EDINP 03:59 → N.2W 09:00

== ENCOUNTER 2021-10-04 18:11 | Inpatient (IN) ==
[2021-10-04] MEDS ORDERED: VANCOMYCIN INJ 1,250 MG in SODIUM CHLORIDE 0.9% 250 ML IV STA (19:36)
[2021-10-04 20:08] LABS: Basophils % 0.3 % (0.0-0.8); Eosinophils # 0.2 10*3/uL (0.0-0.87); Eosinophils % 1.7 % (0.00-10.9); Hematocrit 38.4 VOL% (35.7-47.0); Hemoglobin 11.9 GM/DL (12.0-16.0); Immature Granulocytes % 0.4 %; Immature Granulocytes Absolute 0.05 #; Lymphocytes # 1.5 10*3/uL (1.4-4.0); Lymphocytes % 12.8 % (21.3-54.2); Mean Corpuscular Volume 83.5 FL (87-102); Mean Platelet Volume 11.2 FL (9.6-12.0); Monocytes # 1.2 10*3/uL (0.11-0.8); Monocytes % 10.8 % (1.7-12.7); Platelet Count 233 T/CUMM (130-400); White Blood Count 11.4 T/CUMM (4-12)
[2021-10-04 20:21] LABS: Albumin 3.7 G/DL (3.4-5.0); Bilirubin,Total 0.8 MG/DL (0.20-1.00); Calcium 9.2 MG/DL (8.5-10.1); Osmolality,Calculated 285.8 MOS/KG (273-304); Potassium 3.9 MMOL/L (3.5-5.1); Total Protein 7.2 G/DL (6.4-8.2)
[2021-10-04] MEDS ORDERED: GLUCAGON 1 MG VIAL IM PRN (21:59)
[2021-10-04] MEDS ORDERED: ACETAMINOPHEN 325 MG TABLET PO PRN (21:59)
[2021-10-04] MEDS ORDERED: hydrALAZINE 20 MG/1 ML VIAL IV PRN (21:59)
[2021-10-04] MEDS ORDERED: DEXTROSE 10% 250 ML BAG IV PRN (21:59)
[2021-10-04] MEDS ORDERED: MORPHINE 2 MG/1 ML SYRINGE IV PRN (21:59)
[2021-10-04] MEDS ORDERED: ONDANSETRON 4 MG/2 ML VIAL IV PRN (21:59)
[2021-10-04] MEDS: MEROPENEM 500 MG in SODIUM CHLORIDE 0.9% 100 ML IV SCH (22:15)
[2021-10-04] MEDS ORDERED: ALBUTEROL/IPRATROPIUM 3 ML NEB RESP TX PRN (22:16)
[2021-10-05] MEDS: MEROPENEM 500 MG in SODIUM CHLORIDE 0.9% 100 ML IV SCH ×4 (04:49→23:43)
[2021-10-05 06:51] LABS: Basophils % 0.3 % (0.0-0.8); Eosinophils # 0.2 10*3/uL (0.0-0.87); Eosinophils % 2.1 % (0.00-10.9); Hematocrit 33.7 VOL% (35.7-47.0); Hemoglobin 10.4 GM/DL (12.0-16.0); Immature Granulocytes % 0.5 %; Immature Granulocytes Absolute 0.04 #; Lymphocytes # 1.1 10*3/uL (1.4-4.0); Lymphocytes % 12.6 % (21.3-54.2); Mean Corpuscular HGB Conc 30.9 GM/DL (32-36); Mean Platelet Volume 11.2 FL (9.6-12.0); Monocytes % 11.7 % (1.7-12.7); Neutrophils % 72.8 % (38.7-73.9); Platelet Count 189 T/CUMM (130-400); Red Blood Count 4.01 MC/CUMM (3.8-5.5); Red Cell Distribution Width 15.9 % (9.3-17.3); White Blood Count 8.6 T/CUMM (4-12)
[2021-10-05 07:04] LABS: Calcium 8.5 MG/DL (8.5-10.1); Osmolality,Calculated 287.6 MOS/KG (273-304)
[2021-10-05] MEDS ORDERED: CLINDAMYCIN INJ 900 MG/50 ML PREMIX IV ONE (08:19)
[2021-10-05] MEDS: INSULIN LISPRO 100 UNIT/ML SUBCUT SCH ×4 (08:27→21:02)
[2021-10-05] MEDS ORDERED: POTASSIUM CHLORIDE RIDER 10 MEQ/100 ML PREMIX IV PRN (08:34)
[2021-10-05] MEDS ORDERED: BUPIVACAINE MPF 0.25% 10 ML VIAL ONE (09:15)
[2021-10-05] MEDS ORDERED: LIDOCAINE 1%/EPI INJ 20 ML VIAL ONE (09:15)
[2021-10-05] MEDS ORDERED: MIDAZOLAM 2 MG/2 ML VIAL ONE (09:19)
[2021-10-05] MEDS ORDERED: DEXMEDETOMIDINE 200 MCG/2 ML VIAL ONE (09:19)
[2021-10-05] MEDS ORDERED: propofoL 200 MG/20 ML VIAL IV ONE (09:33)
[2021-10-05] MEDS ORDERED: ONDANSETRON 4 MG/2 ML VIAL IV PRN (09:54)
[2021-10-05] MEDS ORDERED: HYDROmorphone 1 MG/1 ML SYRINGE IV PRN (09:54)
[2021-10-05] MEDS ORDERED: LACTATED RINGERS 1,000 ML IV SCH (10:30)
[2021-10-05] MEDS: VANCOMYCIN INJ 1,000 MG in SODIUM CHLORIDE 0.9% 250 ML IV SCH ×2 (10:45→21:10)
[2021-10-05] MEDS: DOXAZOSIN 1 MG TABLET PO SCH ×2 (12:12→21:02)
[2021-10-05] MEDS: MONTELUKAST 10 MG TABLET PO SCH (12:12)
[2021-10-05] MEDS: DIGOXIN 0.25 MG TABLET PO SCH (12:13)
[2021-10-05] MEDS: CETIRIZINE 10 MG TABLET PO SCH (12:13)
[2021-10-05] MEDS: FERROUS SULFATE 325 MG TABLET PO SCH (12:13)
[2021-10-05] MEDS: PANTOPRAZOLE 40 MG TABLET PO SCH (12:13)
[2021-10-05] MEDS: LOSARTAN 50 MG TABLET PO SCH (12:13)
[2021-10-05] MEDS: METOPROLOL TARTRATE 100 MG TABLET PO SCH ×2 (12:13→21:02)
[2021-10-05] MEDS: DILTIAZEM CD 300 MG CAPSULE PO SCH (21:02)
[2021-10-05] MEDS: SIMVASTATIN 20 MG TABLET PO SCH (21:02)
[2021-10-05] MEDS: INSULIN GLARGINE 100 UNIT/ML SUBCUT SCH (21:03)
[2021-10-06] MEDS: MEROPENEM 500 MG in SODIUM CHLORIDE 0.9% 100 ML IV SCH ×4 (03:31→21:39)
[2021-10-06 05:29] LABS: Basophils % 0.4 % (0.0-0.8); Eosinophils # 0.2 10*3/uL (0.0-0.87); Hematocrit 37.7 VOL% (35.7-47.0); Hemoglobin 11.6 GM/DL (12.0-16.0); Immature Granulocytes % 0.5 %; Immature Granulocytes Absolute 0.05 #; Lymphocytes # 0.8 10*3/uL (1.4-4.0); Mean Corpuscular HGB Conc 30.8 GM/DL (32-36); Mean Corpuscular Volume 83.8 FL (87-102); Mean Platelet Volume 10.9 FL (9.6-12.0); Monocytes # 1.4 10*3/uL (0.11-0.8); Monocytes % 12.6 % (1.7-12.7); Neutrophils % 77.5 % (38.7-73.9); Platelet Count 200 T/CUMM (130-400); Red Cell Distribution Width 16.1 % (9.3-17.3); White Blood Count 10.9 T/CUMM (4-12)
[2021-10-06 05:54] LABS: Calcium 8.5 MG/DL (8.5-10.1); Osmolality,Calculated 287.7 MOS/KG (273-304); Potassium 3.3 MMOL/L (3.5-5.1)
[2021-10-06] MEDS ORDERED: POTASSIUM CHLORIDE 20 MEQ TABLET PO ONE (07:01)
[2021-10-06] MEDS: FERROUS SULFATE 325 MG TABLET PO SCH (08:53)
[2021-10-06] MEDS: DIGOXIN 0.25 MG TABLET PO SCH (08:53)
[2021-10-06] MEDS: METOPROLOL TARTRATE 100 MG TABLET PO SCH ×2 (08:54→20:31)
[2021-10-06] MEDS: LOSARTAN 50 MG TABLET PO SCH (08:54)
[2021-10-06] MEDS: DOXAZOSIN 1 MG TABLET PO SCH ×2 (08:54→20:31)
[2021-10-06] MEDS: MONTELUKAST 10 MG TABLET PO SCH (08:54)
[2021-10-06] MEDS: CETIRIZINE 10 MG TABLET PO SCH (08:54)
[2021-10-06] MEDS: PANTOPRAZOLE 40 MG TABLET PO SCH (08:54)
[2021-10-06] MEDS: VANCOMYCIN INJ 1,000 MG in SODIUM CHLORIDE 0.9% 250 ML IV SCH (08:54)
[2021-10-06] MEDS: INSULIN LISPRO 100 UNIT/ML SUBCUT SCH ×4 (08:57→20:35)
[2021-10-06] MEDS: SIMVASTATIN 20 MG TABLET PO SCH (20:31)
[2021-10-06] MEDS: DILTIAZEM CD 300 MG CAPSULE PO SCH (20:31)
[2021-10-06] MEDS: INSULIN GLARGINE 100 UNIT/ML SUBCUT SCH (20:35)
[2021-10-07] MEDS: MEROPENEM 500 MG in SODIUM CHLORIDE 0.9% 100 ML IV SCH ×5 (03:19→21:26)
[2021-10-07 07:05] LABS: Basophils % 0.3 % (0.0-0.8); Eosinophils # 0.3 10*3/uL (0.0-0.87); Eosinophils % 2.4 % (0.00-10.9); Hematocrit 37.7 VOL% (35.7-47.0); Hemoglobin 11.5 GM/DL (12.0-16.0); Immature Granulocytes % 0.6 %; Immature Granulocytes Absolute 0.06 #; Lymphocytes # 1.6 10*3/uL (1.4-4.0); Lymphocytes % 15.9 % (21.3-54.2); Mean Corpuscular HGB Conc 30.5 GM/DL (32-36); Mean Corpuscular Volume 84.3 FL (87-102); Mean Platelet Volume 11.5 FL (9.6-12.0); Monocytes # 1.3 10*3/uL (0.11-0.8); Monocytes % 12.6 % (1.7-12.7); Neutrophils % 68.2 % (38.7-73.9); Platelet Count 229 T/CUMM (130-400); Red Blood Count 4.47 MC/CUMM (3.8-5.5); White Blood Count 10.3 T/CUMM (4-12)
[2021-10-07 07:16] LABS: Calcium 8.9 MG/DL (8.5-10.1); Osmolality,Calculated 284.8 MOS/KG (273-304); Potassium 3.3 MMOL/L (3.5-5.1)
[2021-10-07] MEDS: INSULIN LISPRO 100 UNIT/ML SUBCUT SCH ×4 (07:27→20:46)
[2021-10-07] MEDS ORDERED: POTASSIUM CHLORIDE 20 MEQ TABLET PO ONE (08:00)
[2021-10-07] MEDS: LOSARTAN 50 MG TABLET PO SCH (08:32)
[2021-10-07] MEDS: METOPROLOL TARTRATE 100 MG TABLET PO SCH ×2 (08:32→20:45)
[2021-10-07] MEDS: CETIRIZINE 10 MG TABLET PO SCH (08:32)
[2021-10-07] MEDS: PANTOPRAZOLE 40 MG TABLET PO SCH (08:32)
[2021-10-07] MEDS: MONTELUKAST 10 MG TABLET PO SCH (08:32)
[2021-10-07] MEDS: DOXAZOSIN 1 MG TABLET PO SCH ×2 (08:32→20:45)
[2021-10-07] MEDS: FERROUS SULFATE 325 MG TABLET PO SCH (08:32)
[2021-10-07] MEDS: DIGOXIN 0.25 MG TABLET PO SCH (08:32)
[2021-10-07] MEDS ORDERED: FUROSEMIDE 40 MG/4 ML VIAL IV ONE (15:00)
[2021-10-07] MEDS: DILTIAZEM CD 300 MG CAPSULE PO SCH (20:45)
[2021-10-07] MEDS: SIMVASTATIN 20 MG TABLET PO SCH (20:45)
[2021-10-07] MEDS: INSULIN GLARGINE 100 UNIT/ML SUBCUT SCH (20:47)
[2021-10-08] MEDS: MEROPENEM 500 MG in SODIUM CHLORIDE 0.9% 100 ML IV SCH ×2 (04:30→09:13)
[2021-10-08 06:17] LABS: Basophils % 0.2 % (0.0-0.8); Eosinophils # 0.2 10*3/uL (0.0-0.87); Eosinophils % 1.9 % (0.00-10.9); Hematocrit 35.8 VOL% (35.7-47.0); Hemoglobin 11.1 GM/DL (12.0-16.0); Immature Granulocytes % 0.5 %; Immature Granulocytes Absolute 0.05 #; Lymphocytes # 0.8 10*3/uL (1.4-4.0); Lymphocytes % 8.3 % (21.3-54.2); Mean Corpuscular Volume 82.5 FL (87-102); Monocytes % 9.9 % (1.7-12.7); Neutrophils % 79.2 % (38.7-73.9); Platelet Count 207 T/CUMM (130-400); Red Blood Count 4.34 MC/CUMM (3.8-5.5); Red Cell Distribution Width 15.8 % (9.3-17.3); White Blood Count 9.9 T/CUMM (4-12)
[2021-10-08 06:35] LABS: Calcium 8.7 MG/DL (8.5-10.1); Osmolality,Calculated 288.6 MOS/KG (273-304); Potassium 3.2 MMOL/L (3.5-5.1)
[2021-10-08] MEDS ORDERED: FUROSEMIDE 40 MG/4 ML VIAL IV ONE (07:30)
[2021-10-08] MEDS: MONTELUKAST 10 MG TABLET PO SCH (09:11)
[2021-10-08] MEDS: DIGOXIN 0.25 MG TABLET PO SCH (09:12)
[2021-10-08] MEDS: PANTOPRAZOLE 40 MG TABLET PO SCH (09:12)
[2021-10-08] MEDS: CETIRIZINE 10 MG TABLET PO SCH (09:12)
[2021-10-08] MEDS: DOXAZOSIN 1 MG TABLET PO SCH (09:12)
[2021-10-08] MEDS: FERROUS SULFATE 325 MG TABLET PO SCH (09:12)
[2021-10-08] MEDS: METOPROLOL TARTRATE 100 MG TABLET PO SCH (09:13)
[2021-10-08] MEDS: LOSARTAN 50 MG TABLET PO SCH (09:13)
[2021-10-08] MEDS: INSULIN LISPRO 100 UNIT/ML SUBCUT SCH ×2 (10:11→11:36)
[2021-10-08] MEDS ORDERED: POTASSIUM CHLORIDE 20 MEQ TABLET PO ONE (11:05)
[2021-10-08 11:42] VITALS: BP 159/79
== END 2021-10-08 16:19 | disposition home health service (06) | DRG 987 ==
LOC: N.ED 18:11 → N.EDINP 21:59 → N.3E 10-05 01:49
PROVIDERS: ADMIT Internal Medicine; ATTEND Internal Medicine